=== PATIENT | female | born 1965 | race Caucasian/White ===

== ENCOUNTER 2020-04-23 09:20 | Emergency (ER) | payer SELFPAY ==
[2020-04-23 09:34] VITALS: BP 122/69; PULSE 77; RESP 18; TEMP 36.7; O2SAT 100
--- NOTE | 2020-04-23 09:39 | DI.RAD.S_ITS ---
PROCEDURE: XR FOREARM RT 2V INDICATIONS: fall/injury TECHNIQUE: 2 views of the forearm were acquired. COMPARISON: [facility], , XR ELBOW 3V LEFT, 05/10/2006, 16:14. FINDINGS: Bones: There is a mildly displaced distal ulnar fracture. No definite accompanying radial fracture can be seen on these images. Prominent elbow fixation hardware is seen. Age-appropriate bony degenerative changes are seen. Soft tissues: No suspicious soft tissue calcifications or masses. IMPRESSION: Mildly displaced distal ulna fracture. No definite accompanying radial fracture can be seen. Extensive elbow fixation hardware. Dictated by: Chicho Navarro M.D. on 04/23/2020 at 9:05 Approved by: Chicho Navarro M.D. on 04/23/2020 at 9:06
[2020-04-23] MEDS: HYDROCODONE/ACET 5/325 TABLET 1 TAB PO (10:28)
--- NOTE | 2020-04-23 10:28 | ED.UPPEXIN ---
HPI - Extremity Injury (Upper) General Chief Complaint: Extremity Injury, Upper Stated Complaint: lt arm poss broken, fell last tnight Time Seen by Provider: 04/23/20 09:24 Source: patient Mode of arrival: Ambulatory Limitations: no limitations History of Present Illness HPI narrative: 55-year-old female daily smoker with noncontributory medical history presents with her and a chief complaint of an accidental laceration to her left index finger just prior to arrival. She was using a sharp knife to open a bottle when it slipped and she lacerated the side of her finger. It bled fair amount caused her some pain but she denies any numbness, tingling or decreased range of motion or strength. She is otherwise well and free of complaint. Her last tetanus was at least 5 years ago. MD complaint: injury to: left Onset (ago): hour(s) Other Extremity Injury: Left: fingers Other injuries: none Handedness: right Place: home Severity: moderate Exacerbating factors: none Context: laceration Associated symptoms: denies other symptoms Treatments prior to arrival: bandage Related Data Home Medications Medication Instructions Recorded Confirmed . (No Home Medications) #0 02/24/06 Previous Rx's Medication Instructions Recorded hydrocodone-acetaminophen 1 tab PO Q4-6H PRN #20 tab 04/23/20 Allergies Allergy/AdvReac Type Severity Reaction Status Date / Time No Known Drug Allergies Allergy Verified 04/23/20 09:39 Review of Systems Constitutional Constitutional: Denies chills, Denies fatigue, Denies fever(s), Denies frequent falls, Denies lethargy and Denies weakness Eyes Eyes: Denies change in vision, Denies eye discharge, Denies irritation and Denies loss of vision ENT Ears, Nose, Mouth, and Throat: Denies change in voice, Denies dizziness, Denies neck pain, Denies sore throat and Denies throat swelling Cardiovascular Cardiovascular: Denies chest pain, Denies irregular heart rhythm, Denies lightheadedness, Denies palpitations, Denies dyspnea, Denies dyspnea on exertion and Denies orthopnea Respiratory Respiratory: Denies cough, Denies dyspnea, Denies dyspnea on exertion and Denies wheezing Gastrointestinal Gastrointestinal: Denies abdominal pain, Denies change in bowel habits, Denies diarrhea, Denies nausea and Denies vomiting Musculoskeletal Musculoskeletal: Denies neck pain and Denies numbness Integumentary/Breasts Skin/Breast: Denies pruritus, Denies erythema, Denies rash and Reports wounds Neurologic Neurologic: Denies behavioral changes, Denies confusion, Denies dizziness, Denies frequent falls, Denies loss of vision, Denies numbness and Denies weakness Psychiatric Psychiatric: Denies anxiety, Denies behavioral changes, Denies confusion, Denies depression, Denies homicidal ideation and Denies suicidal ideation Endocrine Endocrine: Denies fatigue, Denies flushing and Denies palpitations Hematologic/Lymphatic Hematologic/Lymphatic: Denies easy bruising Allergic/Immunologic Allergic/Immunologic: Denies urticaria, Denies throat swelling and Denies wheezing Patient History Social History Smoking Status: Current every day smoker Smoking Status: Current every day smoker alcohol intake frequency: other Substance Use Type: marijuana Exam Narrative Exam Narrative: GEN: AOx3 and in mild distress EYES: Pupils are equal, round, and reactive to light and accommodation. Extraoccular muscles are intact bilaterally. There is no subconjunctival hemorrhage or exudate. CHEST: Lungs are clear to auscultation bilaterally and free of wheezes, rales, or rhonchi. Heart rate is regular rhythm, there are no murmurs, clicks, rubs, or gallops. There is no chest wall tenderness. ABD: Abdomen is soft and nontender. There is no guarding or rebound. Bowel sounds are normal in all 4 quadrants. There is no mass or organomegaly. EXT: 1.5 cm laceration lateral edge of left index finger adjacent to the D IP. Minimal active bleeding, no evidence of tendon involvement when visualized in a bloodless field. Full painless ROM of all extremities with no loss of sensation or strength. SKIN: Warm, pink, and dry. No erythema or rash Initial Vital Signs Initial Vital Signs: Vital Signs Temperature 98.1 F 04/23/20 09:34 Pulse Rate 77 04/23/20 09:34 Respiratory Rate 18 04/23/20 09:34 Blood Pressure 122/69 04/23/20 09:34 Pulse Oximetry 100 04/23/20 09:34 Procedures Laceration Repair Laceration 1: Site: upper extremity Side (If applicable): left Size (cm): 1.5 Description: linear Depth: simple, single layer Local Anesthetic: lidocaine 1% and with bicarb Amount of anesthesia used (mL): 2 Pre-repair: wound explored and irrigated extensively Skin layer closed with: nylon Size (cm): 5-0 Number of sutures: 5 Technique: simple, interrupted Course Orders Ordered: ED Orders 04/23/20 09:39 XR forearm LT 2V Stat Discontinued Medications Hydrocodone Bitart/Acetaminophen ([place] 5/325) 1 tab PO NOW ONE Stop: 04/23/20 10:25 Last Admin: 04/23/20 10:28 Dose: 1 tab Documented by: BRIAN Hydrocodone Bitart/Acetaminophen ([place] 5/325) 1 tab PO NOW ONE Stop: 04/23/20 10:28 Last Admin: 04/23/20 10:28 Dose: Not Given Documented by: BRIAN Vital Signs Vital signs: Vital Signs - 8 hr 04/23/20 09:34 Temperature 98.1 F Pulse Rate 77 Respiratory Rate 18 Blood Pressure 122/69 Pulse Oximetry 100 MDM - Extremity Injury (Upper) Imaging Data Extremity x-ray #1: Radiologist's Impression: Chart Viewer Diagnostics DATE TYPE STATUS REF RANGE/AUTHOR Hx 04/23/20 09:39 Chicho Navarro JuanitoSabrina K 55, F0 1965 [facility], [facility] ED R05 56.8kg Extremity Injury, Upper Search Chart No Data to Display Total 30 MME/Day Pending Discharge NF - Not included in interaction checking ONSET Today 09:34 Juanito,Sabrina Smith 55 F [address] [address] XRay Report Signed Patient: Sabrina Solomon KMR#: [id number] : 1965Acct:[id number] Age/Sex: 55 / FDate of Service: 04/23/20 Loc: ED Accession Number: [id number] Procedure: XR forearm LT 2V Ordering Provider: Juan Francisco Partida D.O. PROCEDURE: XR FOREARM RT 2V INDICATIONS: fall/injury TECHNIQUE: 2 views of the forearm were acquired. COMPARISON: [facility], , XR ELBOW 3V LEFT, 05/10/2006, 16:14. FINDINGS: Bones: There is a mildly displaced distal ulnar fracture. No definite accompanying radial fracture can be seen on these images. Prominent elbow fixation hardware is seen. Age-appropriate bony degenerative changes are seen. Soft tissues: No suspicious soft tissue calcifications or masses. IMPRESSION: Mildly displaced distal ulna fracture. No definite accompanying radial fracture can be seen. Extensive elbow fixation hardware. Dictated by: Chicho Navarro M.D. on 04/23/2020 at 9:05 Approved by: Chicho Navarro M.D. on 04/23/2020 at 9:06 Discharge Plan Departure Patient Disposition: Home Clinical Impression: Forearm fracture Qualifiers: Encounter type: initial encounter Fracture type: closed Laterality: left Qualified Code(s): S52.92XA - Unspecified fracture of left forearm, initial encounter for closed fracture Instructions: DI for Fracture Activity Restrictions/Additional Instructions: *You have been diagnosed with [acute left ulna shaft fracture] *What to do: *Take medications as directed *Follow up with your primary care provider in 2-3 days, call for an appointment. Let them know you were seen in the Emergency Department and that we ask that you be seen in follow up *Return to ER if you should have any new, worsening or concerning symptoms such as worsening pain, numbness, tingling or other bothersome symptoms Splint Care: Keep splint clean and dry. Elevated affected body part to decrease swelling. OK to use ice pack on the affected body part. Use for 15-20 minutes each time, for 5-6x per day. If you develop worsening pain, numbness, tingling, discoloration of the affected body part, loosen the splint by loosening the DARA wrap, and either see your doctor for an urgent re-assessment, or return to the Emergency Department. Return to the Emergency Department for any new or worsening symptoms. Prescriptions: New hydrocodone-acetaminophen 5-325 mg tablet 1 tab PO Q4-6H PRN (Reason: pain) Qty: 20 RF: 0 No Action . (No Home Medications) Qty: 0 RF: 0 Referrals: Surjit Henao MD [Physician] -
[2020-04-23 11:19] VITALS: PULSE 78
[2020-04-23 11:22] VITALS: BP 127/66; PULSE 82; RESP 16; TEMP 36.9; O2SAT 100
--- NOTE | 2020-04-25 21:53 | ED_ITS ---
HPI - Extremity Injury (Upper) General Chief Complaint: Extremity Injury, Upper Stated Complaint: lt arm poss broken, fell last tnight Time Seen by Provider: 04/23/20 09:24 Source: patient Mode of arrival: Ambulatory Limitations: no limitations History of Present Illness HPI narrative: 55F smoker presents alone with chief complaint of left forearm pain after falling last night. She is visiting locally with family and was unable to see in the dark when she slipped and fell, landing on her left forearm. She felt immediate pain in the middle of her forearm. She denies any numbness, tingling or weakness. She denies any elbow or shoulder pain. She denies any head, neck or back pain. She is otherwise well and free of complaint. MD complaint: injury to: left and forearm Onset (ago): hour(s) Other injuries: none Handedness: right Place: home Severity: moderate Relieving factors: rest Exacerbating factors: movement of extremity Context: direct blow Associated symptoms: denies other symptoms Treatments prior to arrival: bandage Related Data Home Medications Medication Instructions Recorded Confirmed . (No Home Medications) #0 02/24/06 Previous Rx's Medication Instructions Recorded hydrocodone-acetaminophen 1 tab PO Q4-6H PRN #20 tab 04/23/20 Allergies Allergy/AdvReac Type Severity Reaction Status Date / Time No Known Drug Allergies Allergy Verified 04/23/20 09:39 Review of Systems Constitutional Constitutional: Denies chills, Denies fatigue, Denies fever(s), Denies frequent falls, Denies lethargy and Denies weakness Eyes Eyes: Denies change in vision, Denies eye discharge, Denies irritation and Denies loss of vision ENT Ears, Nose, Mouth, and Throat: Denies change in voice, Denies dizziness, Denies neck pain, Denies sore throat and Denies throat swelling Cardiovascular Cardiovascular: Denies chest pain, Denies irregular heart rhythm, Denies lightheadedness, Denies palpitations, Denies dyspnea, Denies dyspnea on exertion and Denies orthopnea Respiratory Respiratory: Denies cough, Denies dyspnea, Denies dyspnea on exertion and Denies wheezing Gastrointestinal Gastrointestinal: Denies abdominal pain, Denies change in bowel habits, Denies diarrhea, Denies nausea and Denies vomiting Musculoskeletal Musculoskeletal: Denies neck pain and Denies numbness Integumentary/Breasts Skin/Breast: Denies pruritus, Denies erythema, Denies rash and Denies wounds Neurologic Neurologic: Denies behavioral changes, Denies confusion, Denies dizziness, Denies frequent falls, Denies loss of vision, Denies numbness and Denies weakness Psychiatric Psychiatric: Denies anxiety, Denies behavioral changes, Denies confusion, Denies depression, Denies homicidal ideation and Denies suicidal ideation Endocrine Endocrine: Denies fatigue, Denies flushing and Denies palpitations Hematologic/Lymphatic Hematologic/Lymphatic: Denies easy bruising Allergic/Immunologic Allergic/Immunologic: Denies urticaria, Denies throat swelling and Denies wheezing Patient History Social History Smoking Status: Current every day smoker Smoking Status: Current every day smoker alcohol intake frequency: other Substance Use Type: marijuana Exam Narrative Exam Narrative: GENERAL: [55] year old patient appears stated age. Well- nourished, well-developed patient, in mild distress. HEAD: Atraumatic. Normocephalic. EYES: Pupils equal round and reactive. Extraocular motions intact. No scleral icterus. No injection or drainage. ENT: Nose without bleeding, purulent drainage. Throat without erythema, tonsillar hypertrophy or exudate. Airway patent. NECK: Trachea midline. Non tender CARDIOVASCULAR: Regular rate and rhythm without murmurs, gallops, or rubs. RESPIRATORY: Clear to auscultation. Breath sounds equal bilaterally. No wheezes, rales, or rhonchi. GASTROINTESTINAL: Abdomen soft, non-tender, nondistended. EXTREMITIES: Tenderness to palpation of left forearm, closed, isolated neurovascular intact. No obvious deformity or significant swelling. BACK: Nontender without deformity or crepitance. No flank tenderness. NEURO: AOx3. SKIN: No rash or erythema of visible areas Initial Vital Signs Initial Vital Signs: Vital Signs Temperature 98.1 F 04/23/20 09:34 Pulse Rate 77 04/23/20 09:34 Respiratory Rate 18 04/23/20 09:34 Blood Pressure 122/69 04/23/20 09:34 Pulse Oximetry 100 04/23/20 09:34 Procedures Orthopedic Splinting/Casting Injury #1: Side: right Upper Extremity Injury Location: forearm Upper Extremity Immobilizer: sling/shoulder immobilizer and sugar tong splint Post splinting neuro exam: intact Post splinting vascular exam: intact Placed by: Nursing Course Orders Ordered: Discontinued Medications Hydrocodone Bitart/Acetaminophen ([place] 5/325) 1 tab PO NOW ONE Stop: 04/23/20 10:25 Last Admin: 04/23/20 10:28 Dose: 1 tab Documented by: BRIAN Hydrocodone Bitart/Acetaminophen ([place] 5/325) 1 tab PO NOW ONE Stop: 04/23/20 10:28 Last Admin: 04/23/20 10:28 Dose: Not Given Documented by: BRIAN MDM - Extremity Injury (Upper) Imaging Data Extremity x-ray #1: Radiologist's Impression: Chart Viewer Diagnostics DATE TYPE STATUS REF RANGE/AUTHOR Hx 04/23/20 09:39 RamonChicho Shannon Sarah 55, F0 1965 [facility], [facility] ED 56.8kg Extremity Injury, Upper Search Chart No Data to Display Total 30 MME/Day Pending Discharge NF - Not included in interaction checking ONSET 04/23/20 11:22 Sabrina Solomon Sarah 55 F 1965 [place] [address] XRay Report Signed Patient: Sabrina Solomon KMR#: [id number] : 1965Acct:[id number] Age/Sex: 55 / FDate of Service: 04/23/20 Loc: ED Accession Number: [id number] Procedure: XR forearm LT 2V Ordering Provider: Juan Francisco Partida D.O. PROCEDURE: XR FOREARM RT 2V INDICATIONS: fall/injury TECHNIQUE: 2 views of the forearm were acquired. COMPARISON: [facility], , XR ELBOW 3V LEFT, 05/10/2006, 16:14. FINDINGS: Bones: There is a mildly displaced distal ulnar fracture. No definite accompanying radial fracture can be seen on these images. Prominent elbow fixation hardware is seen. Age-appropriate bony degenerative changes are seen. Soft tissues: No suspicious soft tissue calcifications or masses. IMPRESSION: Mildly displaced distal ulna fracture. No definite accompanying radial fracture can be seen. Extensive elbow fixation hardware. Dictated by: Chicho Navarro M.D. on 04/23/2020 at 9:05 Approved by: Chicho Navarro M.D. on 04/23/2020 at 9:06 Discharge Plan Departure Patient Disposition: Home Clinical Impression: Forearm fracture Qualifiers: Encounter type: initial encounter Fracture type: closed Laterality: left Qualified Code(s): S52.92XA - Unspecified fracture of left forearm, initial encounter for closed fracture Discharge Date/Time: 04/23/20 10:50 Instructions: DI for Fracture Activity Restrictions/Additional Instructions: *You have been diagnosed with [acute left ulna shaft fracture] *What to do: *Take medications as directed *Follow up with your primary care provider in 2-3 days, call for an appointment. Let them know you were seen in the Emergency Department and that we ask that you be seen in follow up *Return to ER if you should have any new, worsening or concerning symptoms such as worsening pain, numbness, tingling or other bothersome symptoms Splint Care: Keep splint clean and dry. Elevated affected body part to decrease swelling. OK to use ice pack on the affected body part. Use for 15-20 minutes each time, for 5-6x per day. If you develop worsening pain, numbness, tingling, discoloration of the affected body part, loosen the splint by loosening the DARA wrap, and either see your doctor for an urgent re-assessment, or return to the Emergency Department. Return to the Emergency Department for any new or worsening symptoms. Prescriptions: New hydrocodone-acetaminophen 5-325 mg tablet 1 tab PO Q4-6H PRN (Reason: pain) Qty: 20 RF: 0 No Action . (No Home Medications) Qty: 0 RF: 0 Referrals: Surjit Henao MD [Physician] -
== END 2020-04-23 10:50 | disposition home or self-care (01) ==
PROVIDERS: Emergency Provider Emergency Medicine
DX: S52.92XA Unspecified fracture of left forearm, initial encounter for closed fracture (principal); W19.XXXA Unspecified fall, initial encounter
CPT/HCPCS: 29125; 73090; 99283

== ENCOUNTER 2020-12-13 22:42 | Inpatient (IN) | payer MEDICAID, SELFPAY ==
[2020-12-13 22:43] VITALS: BP 197/86; PULSE 91; RESP 22; TEMP 37.1; O2SAT 95
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
[2020-12-13 23:10] LABS: Add Manual Diff / Slide Review NO; Basophils Absolute Auto 0 /uL (0-100); Basophils Percent Auto 0.4 % (0-2); Eosinophils Absolute Auto 100 /uL (0-450); Eosinophils Percent Auto 1.3 % (2-4); Hematocrit 42.4 % (36-46); Hemoglobin 14.2 g/dL (12.0-16.0); Lymphocytes Absolute Auto 1900 /uL (1100-4500); Lymphocytes Percent Auto 28.3 % (25-40); Mean Corpuscular HGB Conc 33.5 % (30-36); Mean Corpuscular Volume 95.6 fL (80-100); Monocytes Absolute Auto 800 /uL (0-900); Monocytes Percent Auto 11.6 % (3-14); Neutrophils Absolute Auto 3900 /uL (1500-7000); Neutrophils Percent Auto 58.4 % (50-75); Platelet Count 271 X10^3/uL (150-400); Red Blood Cell Count 4.44 X10^6/uL (4.0-5.2); Red Cell Distribution Width 14.9 % (11.6-14.8); White Blood Cell Count 6.7 X10^3/uL (4.5-11.0)
[2020-12-13 23:14] LABS: Alanine Aminotransferase 42 IU/L (<35); Albumin 4.8 g/dL (3.5-5.0); Albumin Globulin Ratio 1.1 (1.0-2.8); Alkaline Phosphatase 112 U/L (38-126); Aspartate Aminotransferase 54 IU/L (14-36); Bilirubin Total 0.4 mg/dL (0.2-1.3); Blood Urea Nitrogen 20 mg/dL (7-17); Calcium 10.1 mg/dL (8.4-10.2); Carbon Dioxide 33 mmol/L (22-32); Chloride 95 mmol/L (98-107); Estimated Glomerular Filt Rate > 60.0 mL/min (>60); Ethanol (ETOH) 12 mg/dL; Globulin 4.5 g/dL (1.7-4.1); Glucose 240 mg/dL (70-100); HEMOLYSIS 29 (0-50); Lipase 395 U/L (23-300); Magnesium 1.6 mg/dL (1.6-2.3); Potassium 3.9 mmol/L (3.4-5.1); Sodium 139 mmol/L (137-145); Total Protein 9.3 g/dL (6.3-8.2)
[2020-12-13] MEDS: LORazepam 2 MG/ML INJ 6 MG IV (23:22)
[2020-12-13 23:29] VITALS: PULSE 101; RESP 39
[2020-12-13 23:30] VITALS: PULSE 103; RESP 26
[2020-12-13 23:31] VITALS: BP 159/76; PULSE 103; RESP 24
[2020-12-13] MEDS: THIAMINE 200 MG/2 ML VIAL 100 MG IV (23:41)
[2020-12-13] MEDS: SODIUM CHLORIDE 0.9% 1,000 ML 1000 ML IV (23:41)
[2020-12-13] MEDS: MAGNESIUM SULFATE 2 GM/50 ML PIGGYBACK IV (23:43)
[2020-12-14] VITALS (16 sets, daily range): BP systolic 105–164; BP diastolic 58–114; PULSE 64–97; RESP 16–31; TEMP 36.6–36.8; O2SAT 94–99; BMI 22.6
[2020-12-14] MEDS: ONDANSETRON 4 MG/2 ML INJ IV ×2 (00:10→16:04)
[2020-12-14 01:45] LABS: Phosphorous 2.9 mg/dL (2.5-4.5)
[2020-12-14 02:08] LABS: COVID19 - ADMIT (NP swab/PCR) Negative (Negative)
[2020-12-14] MEDS: SODIUM CHLORIDE 0.9% 1,000 ML 125 ML IV ×3 (02:10→18:08)
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
--- NOTE | 2020-12-14 03:57 | PC.ADMIT ---
[address] [facility] Admission Note: The patient,Sabrina Solomon,55 y/o, was given written information regarding hospital policies, unit procedures and contact persons. Patient's smoking status: Current every day smoker. Pt admit to acute care from ED in stable condition. Able to ambulate albeit unsteady on feet from gurney to bed. High fall risk. Pt very drowsy from administration of 6 mg ativan in ED, kept falling asleep during admit. Reports last drink prior to admit, endorses drinking up to 2 pints vodka/day (approx 950 mL). Every day smoker, reports 2 cigarettes/day but is not sure of that. In no apparent cardiovascular or respiratory distress. Denies SOB, chest pain, dizziness, nausea. AO x4, +CSM, fatigued. CIWA 6 on admit, 5 at 0300. Denies A/V/T hallucinations, mild tremors present. Reports incontinence at baseline. Fluids running NS 125/hr. Patient unable to accurately recall medical history or current medications. Indicated to this RN that she does indeed take medications, but does not know the names or dosages, and it is unclear if she takes them regularly. Pt is aware of status with police department. Vital Signs - 8 hr 12/13/20 22:43 12/13/20 23:29 12/13/20 23:30 Temperature 98.7 F Pulse Rate 91 H 101 H 103 H Respiratory Rate 22 39 H 26 H Blood Pressure 197/86 H Pulse Oximetry 95 12/13/20 23:31 12/14/20 00:00 12/14/20 00:30 Temperature Pulse Rate 103 H 97 H 86 Respiratory Rate 24 31 H 27 H Blood Pressure 159/76 H Pulse Oximetry 12/14/20 01:00 12/14/20 01:30 12/14/20 01:47 Temperature Pulse Rate 82 80 79 Respiratory Rate 29 H 25 H 22 Blood Pressure 109/58 L Pulse Oximetry 12/14/20 01:56 12/14/20 02:15 Temperature 98.2 F Pulse Rate 81 79 Respiratory Rate 18 18 Blood Pressure 159/114 H 123/73 Pulse Oximetry 94 95
[2020-12-14] MEDS: PANTOPRAZOLE DR 20 MG TABLET PO (06:27)
[2020-12-14 07:28] LABS: Prothrombin Time 10.8 SECONDS (10.1-12.7)
[2020-12-14 07:35] LABS: Alanine Aminotransferase 27 IU/L (<35); Albumin 3.4 g/dL (3.5-5.0); Alkaline Phosphatase 84 U/L (38-126); Aspartate Aminotransferase 36 IU/L (14-36); BUN Creatinine Ratio 35.8 (6-22); Bilirubin Total 0.2 mg/dL (0.2-1.3); Blood Urea Nitrogen 19 mg/dL (7-17); Calcium 8.7 mg/dL (8.4-10.2); Carbon Dioxide 28 mmol/L (22-32); Chloride 104 mmol/L (98-107); Estimated Glomerular Filt Rate > 60.0 mL/min (>60); Globulin 3.3 g/dL (1.7-4.1); Glucose 118 mg/dL (70-100); HEMOLYSIS < 15 (0-50); Potassium 3.8 mmol/L (3.4-5.1); Sodium 137 mmol/L (137-145); Total Protein 6.7 g/dL (6.3-8.2)
[2020-12-14] MEDS: THIAMINE 100 MG TABLET PO (09:57)
[2020-12-14] MEDS: ENOXAPARIN 40 MG/0.4 ML SYRINGE SUBCUT (09:57)
[2020-12-14] MEDS: MULTIVITAMIN 1 TABLET 1 TAB PO (09:58)
[2020-12-14] MEDS: FOLIC ACID 1 MG TABLET PO (09:58)
[2020-12-14] MEDS: LORazepam 2 MG/ML INJ IV ×4 (10:12→20:46)
[2020-12-14] MEDS: chlordiazePOXIDE 25 MG CAPSULE 50 MG PO ×2 (11:01→17:34)
--- NOTE | 2020-12-14 14:50 | PC.NURSE ---
Addendum entered by Trudy Nowak R.N. 12/14/20 15:36: At 1500 pt awoke from nap with CIWA score of 6, and shakes given 1 mg ativan. assisted to BR, obtained small urine and sent to lab. cleaned of incontinent urine. Original Note: Pt lethargic this a.m. resting until approximately 10 a.m. small emesis x1. Pt c/o mild MALIK, and hands moderately shaking, she had mild anxiety with a CIWA score of 11. PRN Ativan 2mg given x1 with good effect and librium initiated. NS @ 125ml/hr. LS CTA. Pt ate 75% of breakfast and about 50% of lunch. Initially BP elevated in 160's but improved after PRN ativan. Throughout the rest of the shift CIWA score of 2-5. She made several calls on her cell phone to her spouse and public events facilities rental manager. Reported she was supposed to have a zoom court date today. SW made call to her defender. Assisted patient to bathroom and changing of soiled clothes. She was incontinent of urine this shift. She reported feeling dizzy while ambulating. Bed alarm and seizure precautions in place.Awaiting collection of UA for tox screen. No phone calls to patient room or visitors this shift.Endorsed to oncoming shift.
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
--- NOTE | 2020-12-14 15:32 | PC.NURSE ---
Pt's POC urine ordered per E.R. cancelled. Urine for toxicology screen collected and sent by cristian RUVALCABA.
[2020-12-14] MEDS: ACETAMINOPHEN 325 MG TABLET 650 MG PO (16:04)
--- NOTE | 2020-12-14 16:55 | PC.NURSE ---
Addendum entered by Julisa Elizabeth R.N. 12/14/20 21:41: Reports increasing anxiety. States headache and nausea have improved. Tremulous. Ativan administered as per emar. Now currently resting quietly in bed with eyes closed without signs of discomfort or distress. Turns self independently in bed. Incontinent of urine. Brief in place. Addendum entered by Julisa Elizabeth R.N. 12/14/20 17:42: Awakens from sleep and reports headache has improved. Able to take oral nourishment without difficulty. Toileted by ENROLLED AGENT who reports pt fairly stable on feet. Librium administered with explanation for use. Discussion with pt can follow up with ativan as needed. Will continue to monitor. Addendum entered by Julisa Elizabeth R.N. 12/14/20 17:06: CIWA of 12. Pt not medicated with prn ativan as now asleep in bed. Pt on scheduled librium. Original Note: Pt awake and alert in bed. Seizure pads in place. Pt reports headache 05/13. Room was darkened, ice pack provided and tylenol administered to treat. Pt is tremulous and currently denies nausea. Given snack to eat as per request. Zofran administered for pt statement intermittently nauseated. BL calf scd's in place. Pt appropriately oriented and conversant.
--- NOTE | 2020-12-14 18:44 | PM.PN.1 ---
Subjective Subjective Date Patient Seen: 12/14/20 Time Patient Seen: 08:44 Interval history: Today she feels somewhat improved. She is still anxious, tremulous, diaphoretic. Initially she was very sedated after large amount of ativan in ED. She woke up and started feeling withdrawal symptoms. She was given ativan per [facility] protocol and given librium. Exam Vital Signs (past 8 hours): - 12/14/20 11:15 12/14/20 14:00 12/14/20 15:35 Temperature 97.8 F Pulse Rate 76 68 66 Respiratory Rate 18 16 18 Blood Pressure 164/95 H 147/88 H 142/71 H Pulse Oximetry 97 12/14/20 16:20 12/14/20 18:33 Temperature 98.1 F Pulse Rate 67 68 Respiratory Rate 19 24 Blood Pressure 143/86 H 130/79 Pulse Oximetry 98 Oxygen Delivery Method Room Air Oxygen Flow Rate 0 Narrative Exam Narrative: General: no acute distress HEENT: PERRL, mucous membranes are moist. Neck: trachea midline. No JVD Lungs: clear bilaterally with no wheezes, rhonchi, or rales. Cardio: egular rate and rhythm without murmur Abdomen: Soft nontender, negative for organomegaly, or masses. normal bowel sounds Musculoskeletal: moving all extremities Skin: Warm dry and intact without rashes Neuro: slow to word finding, answering questions appropriately Psych: flat mood, slightly lethargic Objective Labs Result Diagrams: 12/13/20 22:55 12/14/20 06:44 Labs: Laboratory Results - last 24 hr 12/13/20 12/13/20 12/13/20 22:55 22:55 22:55 WBC 6.7 RBC 4.44 Hgb 14.2 Hct 42.4 MCV 95.6 MCH 32.0 MCHC 33.5 RDW 14.9 H Plt Count 271 Neut % (Auto) 58.4 Lymph % (Auto) 28.3 [place] % (Auto) 11.6 Eos % (Auto) 1.3 L Baso % (Auto) 0.4 Neut # (Auto) 3900 Lymph # (Auto) 1900 [place] # (Auto) 800 Eos # (Auto) 100 Baso # (Auto) 0 PT INR Sodium 139 Potassium 3.9 Chloride 95 L Carbon Dioxide 33 H BUN 20 H Creatinine 0.54 Estimated GFR > 60.0 BUN/Creatinine Ratio 37.0 H Glucose 240 H Calcium 10.1 Phosphorus 2.9 Magnesium 1.6 Total Bilirubin 0.4 AST 54 H ALT 42 H Alkaline Phosphatase 112 Total Protein 9.3 H Albumin 4.8 Globulin 4.5 H Albumin/Globulin Ratio 1.1 Lipase 395 H Ethyl Alcohol 12 H SARS-CoV-2 (PCR) 12/13/20 12/14/20 12/14/20 23:20 06:44 06:44 WBC RBC Hgb Hct MCV MCH MCHC RDW Plt Count Neut % (Auto) Lymph % (Auto) [place] % (Auto) Eos % (Auto) Baso % (Auto) Neut # (Auto) Lymph # (Auto) [place] # (Auto) Eos # (Auto) Baso # (Auto) PT 10.8 INR 1.0 Sodium 137 Potassium 3.8 Chloride 104 Carbon Dioxide 28 BUN 19 H Creatinine 0.53 Estimated GFR > 60.0 BUN/Creatinine Ratio 35.8 H Glucose 118 H D Calcium 8.7 Phosphorus Magnesium Total Bilirubin 0.2 AST 36 ALT 27 Alkaline Phosphatase 84 Total Protein 6.7 Albumin 3.4 L Globulin 3.3 Albumin/Globulin Ratio 1.0 Lipase Ethyl Alcohol SARS-CoV-2 (PCR) Negative [facility] Medical History (Updated 12/14/20 @ 05:31 by JASON Gomez) Alcohol use disorder Bipolar 1 disorder Depression with anxiety Hepatitis C Surgical History (Updated 12/14/20 @ 05:31 by JASON Gomez) History of elbow surgery Family History Father Stroke Mother Diabetes mellitus Social History household members: significant other Smoking Status: Current every day smoker alcohol intake: current Assessment & Plan Assessment & Plan narrative: Ms. Solomon is a 55W with significant alcohol abuse who presents with acute alcohol withdrawal. 1. Alcohol withdrawal, acute in the presence of chronic alcohol abuse, acute on chronic -she is admitted for alcohol withdrawal and is high risk given fast taper of alcohol and more than 2 pints of vodka daily drinking on average -patient has no history of seizures or delirium tremens, or being intubated -patient on CIWA protocol with ativan -started fixed dose librium taper at 50mg Q6hr -patient to be monitored on tele medicine, vital signs q.4 hours, intake and output monitored Q shift, weight measure daily, diet: Regular , patient on CIWA protocol -IV fluid normal saline 100 cc/hour -patient given thiamin and folic acid, mvi 2. Tobacco abuse, acute on chronic, present on admission -counseling provided regarding smoking cessation -decline nicotine patch Code status: Full code Surrogate decision maker: Imtiaz Dalton (daughter) COVID PCR: Negative VTE/DVT prophylaxis: Lovenox 40 mg and SCDs Quality VTE Deep Vein Thrombosis/Pulmonary Embolism Present on Admission: No
[2020-12-14 20:49] LABS: Ur Creatinine Normal (Normal); Ur Specific Gravity Normal (Normal); Urine pH Normal (Normal)
[2020-12-14 20:50] LABS: UR Morphine/Opiate cutoff 300 Negative (Negative); Urine Amphetamines Negative (Negative); Urine Barbiturates Negative (Negative); Urine Benzodiazepines Negative (Negative); Urine Cocaine Negative (Negative); Urine MDMA Negative (Negative); Urine Methadone Negative (Negative); Urine Methamphetamines Negative (Negative); Urine Oxycodone Negative (Negative); Urine Phencyclidine Negative (Negative); Urine Tetrahydrocannabinol Negative (Negative); Urine Tricyclic Antidepressant Negative (Negative)
[2020-12-15] VITALS (10 sets, daily range): BP systolic 118–160; BP diastolic 65–98; PULSE 59–81; RESP 16–22; TEMP 36.6–36.9; O2SAT 94–98
[2020-12-15] MEDS: chlordiazePOXIDE 25 MG CAPSULE 50 MG PO ×4 (00:09→20:56)
[2020-12-15] MEDS: LORazepam 2 MG/ML INJ IV ×3 (00:16→19:18)
[2020-12-15] MEDS: SODIUM CHLORIDE 0.9% 1,000 ML 125 ML IV (02:53)
[2020-12-15] MEDS: PANTOPRAZOLE DR 20 MG TABLET PO (06:15)
[2020-12-15 06:23] LABS: Hematocrit 36.3 % (36-46); Hemoglobin 11.9 g/dL (12.0-16.0); Mean Corpuscular HGB Conc 32.9 % (30-36); Mean Corpuscular Hemoglobin 31.7 PG (26-34); Mean Corpuscular Volume 96.5 fL (80-100); Platelet Count 229 X10^3/uL (150-400); Red Blood Cell Count 3.76 X10^6/uL (4.0-5.2); Red Cell Distribution Width 14.9 % (11.6-14.8); White Blood Cell Count 4.6 X10^3/uL (4.5-11.0)
[2020-12-15 06:29] LABS: Prothrombin Time 10.6 SECONDS (10.1-12.7)
[2020-12-15 06:36] LABS: Alanine Aminotransferase 23 IU/L (<35); Albumin 3.3 g/dL (3.5-5.0); Alkaline Phosphatase 74 U/L (38-126); Aspartate Aminotransferase 30 IU/L (14-36); Bilirubin Total 0.2 mg/dL (0.2-1.3); Blood Urea Nitrogen 12 mg/dL (7-17); Calcium 8.6 mg/dL (8.4-10.2); Carbon Dioxide 28 mmol/L (22-32); Chloride 104 mmol/L (98-107); Estimated Glomerular Filt Rate > 60.0 mL/min (>60); Globulin 3.4 g/dL (1.7-4.1); Glucose 108 mg/dL (70-100); HEMOLYSIS < 15 (0-50); Potassium 3.8 mmol/L (3.4-5.1); Sodium 136 mmol/L (137-145); Total Protein 6.7 g/dL (6.3-8.2)
[2020-12-15 06:38] LABS: Magnesium 1.5 mg/dL (1.6-2.3)
[2020-12-15] MEDS: MAGNESIUM SULFATE 2 GM/50 ML PIGGYBACK IV (07:42)
[2020-12-15] MEDS: THIAMINE 100 MG TABLET PO (09:12)
[2020-12-15] MEDS: MULTIVITAMIN 1 TABLET 1 TAB PO (09:12)
[2020-12-15] MEDS: FOLIC ACID 1 MG TABLET PO (09:13)
[2020-12-15] MEDS: ENOXAPARIN 40 MG/0.4 ML SYRINGE SUBCUT (09:13)
[2020-12-15 13:22] LABS: Magnesium 2.1 mg/dL (1.6-2.3)
--- NOTE | 2020-12-15 14:08 | P.PN_ITS ---
Subjective Subjective Date Patient Seen: 12/15/20 Time Patient Seen: 08:08 Interval history: Today she feels moderately improved. She is still anxious, tremulous, diaphoretic, but this is much better than her symptoms two days ago. Otherwise she has no complaints. Exam Vital Signs (past 8 hours): - 12/15/20 09:40 12/15/20 13:07 Temperature 98.0 F Pulse Rate 68 70 Respiratory Rate 16 22 Blood Pressure 118/65 160/98 H Pulse Oximetry 94 98 Oxygen Delivery Method Room Air Oxygen Flow Rate 0 Narrative Exam Narrative: General: no acute distress HEENT: PERRL, mucous membranes are moist. Neck: trachea midline. No JVD Lungs: clear bilaterally with no wheezes, rhonchi, or rales. Cardio: egular rate and rhythm without murmur Abdomen: Soft nontender, negative for organomegaly, or masses. normal bowel sounds Musculoskeletal: moving all extremities Skin: Warm dry and intact without rashes Neuro: slow to word finding, answering questions appropriately Psych: flat mood, slightly lethargic Objective Labs Result Diagrams: 12/15/20 06:00 12/15/20 06:00 Labs: Laboratory Results - last 24 hr 12/14/20 12/15/20 12/15/20 15:20 06:00 06:00 WBC RBC Hgb Hct MCV MCH MCHC RDW Plt Count PT 10.6 INR 1.0 Sodium 136 L Potassium 3.8 Chloride 104 Carbon Dioxide 28 BUN 12 Creatinine 0.48 L Estimated GFR > 60.0 BUN/Creatinine Ratio 25.0 H Glucose 108 H Calcium 8.6 Magnesium Total Bilirubin 0.2 AST 30 ALT 23 Alkaline Phosphatase 74 Total Protein 6.7 Albumin 3.3 L Globulin 3.4 Albumin/Globulin Ratio 1.0 U Opiates 300ng/mL cut Negative Ur Oxycodone Screen Negative Urine Methadone Screen Negative Ur Barbiturates Screen Negative U Tricyclic Antidepress Negative Ur Phencyclidine Scrn Negative Ur Amphetamines Screen Negative U Methamphetamines Scrn Negative Ur MDMA Scrn (Ecstasy) Negative U Benzodiazepines Scrn Negative Urine Cocaine Screen Negative U Marijuana (THC) Screen Negative 12/15/20 12/15/20 12/15/20 06:00 06:00 13:05 WBC 4.6 RBC 3.76 L Hgb 11.9 L Hct 36.3 MCV 96.5 MCH 31.7 MCHC 32.9 RDW 14.9 H Plt Count 229 PT INR Sodium Cancelled Potassium Cancelled Chloride Cancelled Carbon Dioxide Cancelled BUN Cancelled Creatinine Cancelled Estimated GFR Cancelled BUN/Creatinine Ratio Cancelled Glucose Cancelled Calcium Cancelled Magnesium 1.5 L 2.1 Total Bilirubin AST ALT Alkaline Phosphatase Total Protein Albumin Globulin Albumin/Globulin Ratio U Opiates 300ng/mL cut Ur Oxycodone Screen Urine Methadone Screen Ur Barbiturates Screen U Tricyclic Antidepress Ur Phencyclidine Scrn Ur Amphetamines Screen U Methamphetamines Scrn Ur MDMA Scrn (Ecstasy) U Benzodiazepines Scrn Urine Cocaine Screen U Marijuana (THC) Screen [facility] Medical History (Updated 12/14/20 @ 05:31 by JASON Gomez) Alcohol use disorder Bipolar 1 disorder Depression with anxiety Hepatitis C Surgical History (Updated 12/14/20 @ 05:31 by JASON Gomez) History of elbow surgery Family History Father Stroke Mother Diabetes mellitus Social History household members: significant other Smoking Status: Current every day smoker alcohol intake: current Assessment & Plan Assessment & Plan narrative: Ms. Solomon is a 55W with significant alcohol abuse who presents with acute alcohol withdrawal. 1. Alcohol withdrawal, acute in the presence of chronic alcohol abuse, acute on chronic -she is admitted for alcohol withdrawal and is high risk given fast taper of alcohol and more than 2 pints of vodka daily drinking on average -patient has no history of seizures or delirium tremens, or being intubated -patient on CIWA protocol with ativan -started fixed dose librium taper at 50mg Q6hr, taper to 50 q8hr 12/15, 50q12 12/16, then 50mg once on 12/17 -patient to be monitored on tele medicine, vital signs q.4 hours, intake and output monitored Q shift, weight measure daily, diet: Regular , patient on CIWA protocol -IV fluid normal saline 100 cc/hour -patient given thiamin and folic acid, mvi 2. Tobacco abuse, acute on chronic, present on admission -counseling provided regarding smoking cessation -decline nicotine patch 3. Anemia, mild -hemoglobin from 14.2->11.9 -given IV fluid, so likely hemodilution -will stop IV fluids -recheck hgb in AM -at this time no evidence of bleeding Code status: Full code Surrogate decision maker: Imtiaz Dalton (daughter) COVID PCR: Negative VTE/DVT prophylaxis: Lovenox 40 mg and SCDs Quality VTE Deep Vein Thrombosis/Pulmonary Embolism Present on Admission: No
--- NOTE | 2020-12-15 14:22 | PC.NURSE ---
Pt received lying in bed, seizure precautions. She tolerates breakfast well. Received 2 gm MG+ replaced IV this a.m. upon recheck MG 2.1. Pt O x3 slightly forgetful, reports mild MALIK, mild diaphoresis, c/o nausea (although not vomitting with out sticking her finger in her throat) when RN advised not to stick her finger in her throat she stated the vomit gets stuck in her throat noted minimal emesis. CIWA ranging from 5-11 this a.m. medicated with PRN ativan and scheduled librium. She sleeps much throughout the day, incontinent of urine. Encouraged to shower with acceptance x1 min assist. Slightly unsteady. Continuous monitoring.
--- NOTE | 2020-12-15 16:56 | DIET.PN ---
Dietary Progress Note RD attempt to visit pt, CIWA 5-11 per nursing and sleeping. Will attempt again if hospitalized after weekend.
[2020-12-15] MEDS: SODIUM CHLORIDE 0.9% FLUSH 10 ML IV ×2 (19:18→20:57)
--- NOTE | 2020-12-15 20:30 | PC.NURSE ---
Patient has been inducing vomiting during shift with three episodes since 1829. Spoke with SKIP Pineda and Dr. Glez and we will continue with the Ativan and Librium.
[2020-12-15] MEDS: ONDANSETRON 4 MG/2 ML INJ IV (20:56)
[2020-12-15] MEDS: ACETAMINOPHEN 325 MG TABLET 650 MG PO (20:57)
[2020-12-16] MEDS: chlordiazePOXIDE 25 MG CAPSULE 50 MG PO ×2 (02:25→10:16)
[2020-12-16] MEDS: PANTOPRAZOLE DR 20 MG TABLET PO (05:14)
[2020-12-16 05:16] VITALS: BP 118/74; PULSE 67; RESP 18; TEMP 36.3; O2SAT 94
[2020-12-16 06:08] LABS: Hematocrit 37.1 % (36-46); Hemoglobin 12.4 g/dL (12.0-16.0); Mean Corpuscular HGB Conc 33.5 % (30-36); Mean Corpuscular Hemoglobin 32.4 PG (26-34); Mean Corpuscular Volume 96.5 fL (80-100); Platelet Count 240 X10^3/uL (150-400); Red Blood Cell Count 3.84 X10^6/uL (4.0-5.2); Red Cell Distribution Width 14.8 % (11.6-14.8); White Blood Cell Count 4.7 X10^3/uL (4.5-11.0)
[2020-12-16 06:09] LABS: Prothrombin Time 10.6 SECONDS (10.1-12.7)
[2020-12-16 06:14] LABS: Alanine Aminotransferase 22 IU/L (<35); Albumin 3.5 g/dL (3.5-5.0); Alkaline Phosphatase 71 U/L (38-126); Aspartate Aminotransferase 29 IU/L (14-36); BUN Creatinine Ratio 32.7 (6-22); Bilirubin Total 0.3 mg/dL (0.2-1.3); Blood Urea Nitrogen 17 mg/dL (7-17); Calcium 8.9 mg/dL (8.4-10.2); Carbon Dioxide 28 mmol/L (22-32); Chloride 100 mmol/L (98-107); Estimated Glomerular Filt Rate > 60.0 mL/min (>60); Globulin 3.4 g/dL (1.7-4.1); Glucose 125 mg/dL (70-100); HEMOLYSIS < 15 (0-50); Potassium 3.8 mmol/L (3.4-5.1); Sodium 133 mmol/L (137-145); Total Protein 6.9 g/dL (6.3-8.2)
--- NOTE | 2020-12-16 06:25 | PC.NURSE ---
Noted strong smelling urine when attends was changed earlier, tj & skin care done. SKIP Edwin notified ordered urine microscopic via cath. But pt. sound asleep @ this time. She was up until 0330 this morning, reported to coordinator Sara Liang RN she advised me to let her sleep for now. She stated will collect urine sample when she wakes up. Will report to day RN.
[2020-12-16 06:36] LABS: Magnesium 1.6 mg/dL (1.6-2.3)
[2020-12-16] MEDS: MAGNESIUM SULFATE 2 GM/50 ML PIGGYBACK IV (08:05)
[2020-12-16 08:16] VITALS: BP 108/69; PULSE 58; RESP 12; TEMP 36.2; O2SAT 95
[2020-12-16] MEDS: MULTIVITAMIN 1 TABLET 1 TAB PO (10:16)
[2020-12-16] MEDS: FOLIC ACID 1 MG TABLET PO (10:16)
[2020-12-16] MEDS: THIAMINE 100 MG TABLET PO (10:16)
[2020-12-16] MEDS: MAGNESIUM OXIDE 400 MG TABLET PO (10:16)
[2020-12-16] MEDS: ENOXAPARIN 40 MG/0.4 ML SYRINGE SUBCUT (10:17)
[2020-12-16] MEDS: SODIUM CHLORIDE 0.9% FLUSH 10 ML IV (10:17)
--- NOTE | 2020-12-16 10:31 | PM.PN.1 ---
Subjective Subjective Date Patient Seen: 12/16/20 Time Patient Seen: 10:32 Interval history: Yesterday her withdrawal symptoms broke through the 50 mg Librium q.8 hours so it was increased to every 6 hours. This morning she appears over-sedated and so we will back off on the dose to 25 mg q.8. This is variability in in response and need for higher and then lower benzodiazepine doses is not unexpected at this stage of withdrawal. The magnesium level is 1.6 today and so an additional 2 g of magnesium will be given along with oral magnesium and repeat level tomorrow. Her CBC and CMP is normal except for a glucose of 125, up from 118. Her heart rate has been in the 40s and 50s on telemetry but appears to be in sinus rhythm. Overnight she had an episode of vomiting which appeared to be somewhat volitional. This morning when I see her she is sleeping through the exam and is not engaged. She received her last dose of lorazepam 7:00 p.m. yesterday and her last dose of Librium at 2:25 a.m.. Exam Vital Signs (past 8 hours): - 12/16/20 05:16 12/16/20 08:16 Temperature 97.3 F L 97.1 F L Pulse Rate 67 58 L Respiratory Rate 18 12 Blood Pressure 118/74 108/69 Pulse Oximetry 94 95 Oxygen Delivery Method Room Air Oxygen Flow Rate 0 Narrative Exam Narrative: She is sleeping and not engaged during my exam visit today. Heart is regular rate and rhythm without murmur Lungs are clear to auscultation bilaterally Extremities have no ankle edema. Objective Labs Result Diagrams: 12/16/20 05:15 12/16/20 05:15 Labs: Laboratory Results - last 24 hr 12/15/20 12/16/20 12/16/20 13:05 05:15 05:15 WBC RBC Hgb Hct MCV MCH MCHC RDW Plt Count PT 10.6 INR 1.0 Sodium 133 L Potassium 3.8 Chloride 100 Carbon Dioxide 28 BUN 17 Creatinine 0.52 Estimated GFR > 60.0 BUN/Creatinine Ratio 32.7 H Glucose 125 H Calcium 8.9 Magnesium 2.1 Total Bilirubin 0.3 AST 29 ALT 22 Alkaline Phosphatase 71 Total Protein 6.9 Albumin 3.5 Globulin 3.4 Albumin/Globulin Ratio 1.0 12/16/20 12/16/20 05:15 05:15 WBC 4.7 RBC 3.84 L Hgb 12.4 Hct 37.1 MCV 96.5 MCH 32.4 MCHC 33.5 RDW 14.8 Plt Count 240 PT INR Sodium Potassium Chloride Carbon Dioxide BUN Creatinine Estimated GFR BUN/Creatinine Ratio Glucose Calcium Magnesium 1.6 Total Bilirubin AST ALT Alkaline Phosphatase Total Protein Albumin Globulin Albumin/Globulin Ratio [facility] Medical History (Updated 12/14/20 @ 05:31 by JASON Gomez) Alcohol use disorder Bipolar 1 disorder Depression with anxiety Hepatitis C Surgical History (Updated 12/14/20 @ 05:31 by JASON Gomez) History of elbow surgery Family History Father Stroke Mother Diabetes mellitus Social History household members: significant other Smoking Status: Current every day smoker alcohol intake: current Assessment & Plan Assessment & Plan narrative: Ms. Solomon is a 55 female with significant alcohol abuse who presented with acute alcohol withdrawal. 1. Alcohol withdrawal, acute in the presence of chronic alcohol abuse, acute on chronic -she was admitted for alcohol withdrawal and is high risk given fast taper of alcohol and more than 2 pints of vodka daily drinking on average -patient has no history of seizures or delirium tremens, or being intubated -patient on CIWA protocol with ativan -continue taper of fixed dose Librium, down to 25 mg q.8 hours today if successful. -monitor on telemetry, vital signs q.4 hours, intake and output monitored Q shift, weight measure daily, diet: Regular , patient on CIWA protocol -IV fluid normal saline 100 cc/hour initially used -patient given thiamin and folic acid, mvi, magnesium 2. Tobacco abuse, acute on chronic, present on admission -counseling provided regarding smoking cessation -decline nicotine patch 3. Anemia, mild -hemoglobin from 14.2->11.9 -given IV fluid, so likely hemodilution -IVF stopped -recheck hgb at 12.4 on 12/16 -at this time no evidence of bleeding 4. Hypomagnesemia -magnesium level 1.6 on 12/16. -begin oral magnesium, give additional 2 g IV and recheck on 12/17 Code status: Full code Surrogate decision maker: Imtiaz Dalton (daughter) COVID PCR: Negative VTE/DVT prophylaxis: Lovenox 40 mg and SCDs Quality VTE Deep Vein Thrombosis/Pulmonary Embolism Present on Admission: No
[2020-12-16] MEDS: LORazepam 2 MG/ML INJ IV (10:57)
[2020-12-16 10:58] LABS: Bacteria Urine Many (>30); RBC Urine 1-5/HPF (0-5/HPF); Squamous Epithelial Cell Urine 1-5 /HPF (0-5/HPF); WBC Urine 5-10/HPF (0-5/HPF)
[2020-12-16 11:00] LABS: Culture Indicated Urine Specimen Cultured
[2020-12-16 11:17] VITALS: BP 130/79; PULSE 64; RESP 14
[2020-12-16 12:10] VITALS: BP 127/84; PULSE 77; RESP 18; TEMP 37.1; O2SAT 98
[2020-12-16] MEDS: chlordiazePOXIDE 25 MG CAPSULE PO (14:17)
[2020-12-16 15:58] VITALS: BP 128/93; PULSE 92; RESP 18; TEMP 36.1; O2SAT 95
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
--- NOTE | 2020-12-16 17:10 | PC.NURSE ---
Addendum entered by Jessica Meneses R.N. 12/16/20 17:46: Late entry: At time of discharge did discuss risk and benefits of staying versus leaving AMA, risk for injury and illness versus treatment. Patient acknowledged education and continued to assert her need to leave and get paperwork from my so he doesn't lose it. Advised patient to return to ED if she felt unwell including symptoms of withdrawal. Patient acknowledged. Original Note: Discharge note: Called into patient room at 1515, patient had removed tele and was changing into street clothes. Notified coordinator that patient wanted to leave against medical advice. After clarifying patient's status with [place] [employer], patient elected to leave AMA. Notified SKIP Pineda who sent prescription to [facility] in [place]. Removed IV and telemetry, notified ICU. Patient gathered belongings, no medications in pharmacy or belongings in safe to be retrieved. Patient dressed self and walked out under own power to ED entrance accompanied by BARREL STRAIGHTENER.
--- NOTE | 2020-12-25 17:02 | PC.NURSE ---
Pt called stating she had lost her antibiotics. Reviewed chart. Pt abx should have started on 12/14 or 12/15 and should have been completed by this date, for this reason I can not explore another prescription. Pt verbalized understanding. I encouraged her to return or f/u w/ her pCP if any concerns/ need to be re-seen.
== END 2020-12-16 16:53 | disposition left against medical advice (07) | DRG 894 ==
LOC: ED 22:55 → AC 12-14 01:10
PROVIDERS: Internal Medicine; Admitting Provider Nurse Practitioner Family; Emergency Provider Emergency Medicine; Referring Provider Emergency Medicine; Visit Provider Nurse Practitioner Family
DX: F10.139 Alcohol abuse with withdrawal, unspecified (principal); N39.0 Urinary tract infection, site not specified; Y90.0 Blood alcohol level of less than 20 mg/100 ml; F31.9 Bipolar disorder, unspecified; E83.42 Hypomagnesemia; F17.210 Nicotine dependence, cigarettes, uncomplicated
CPT/HCPCS: 36415; 80053; 80305; 80320; 81015; 82962; 83690; 83735; 84100; 85025; 85027; 85610; 87077; 87086; 87186; 87635; 96361; 96365; 96375; 99284; 99406; C9803; J1650; J2060; J2405; J3475

== ENCOUNTER 2022-08-20 13:58 | Emergency (ER) | payer OTHER, MEDICAID, SELFPAY ==
[2020-12-14 02:09] VITALS: BMI 22.6
[2022-08-20 14:07] VITALS: BP 149/89; PULSE 88; RESP 17; TEMP 36.8; O2SAT 98; BMI 25.9
[2022-08-20 15:53] VITALS: BP 136/78; PULSE 77; RESP 16; O2SAT 97
[2022-08-20] MEDS: MORPHINE 2 MG/ML INJ IV (16:16)
--- NOTE | 2022-08-20 16:36 | DI.CT.S_ITS ---
PROCEDURE: CT CHEST ABD PEL W CON INDICATIONS: Fall, flank pain, rib pain, extensive bruising TECHNIQUE: After the administration of intravenous contrast, 5 mm thick sections acquired from the lung apices to the symphysis. 2.5 mm thick coronal and sagittal reformats were acquired. Additional 7 mm thick coronal maximum intensity projection (MIP) reformats acquired through the lungs. Optional 10-minute delayed imaging may be performed from the kidneys to the bladder. For radiation dose reduction, the following was used: automated exposure control, adjustment of mA and/or kV according to patient size. COMPARISON: None. FINDINGS: Image quality: Excellent. CHEST: Lungs: No pulmonary contusions or lacerations. No focal airspace disease. Mild pulmonary emphysematous changes. No pneumothorax or hemothorax. Central and peripheral airways appear patent and normal in caliber. Bibasilar atelectasis most pronounced in the left lower lobe. Mediastinum: No mediastinal hematomas. Heart size is normal. No pericardial effusion. Thoracic aorta and pulmonary arteries demonstrate normal size and enhancement. No mediastinal or hilar adenopathy. Esophagus is normal in caliber. Small hiatal hernia. Chest wall: Mildly displaced posterior left 12th rib fracture. Age-indeterminate but chronic appearing healed rib fracture deformities of multiple right-sided ribs. No subcutaneous emphysema. No axillary or supraclavicular adenopathy. Thyroid gland is unremarkable. No suspicious chest wall lesions. ABDOMEN: Solid organs: Liver is normal in size and enhancement, without lacerations. Gallbladder demonstrates circumferential wall thickening slightly greater than expected for degree distension. No pericholecystic fluid. There is also mild prominence of the common bile duct and main pancreatic duct near the pancreatic head. No evidence for intraluminal filling defects or mass lesions or adenopathy in the periportal region or head of the pancreas. No intrahepatic biliary ductal dilatation. Pancreas enhances normally, without transection. Spleen is normal in size and enhancement, without lacerations. No adrenal hematomas. Both kidneys enhance normally, without hydronephrosis or lacerations. Peritoneum and bowel: No free fluid or air. Unenhanced bowel loops demonstrate normal wall thickness and caliber. Scattered colonic diverticulosis without acute diverticulitis. Nodes and vessels: No retroperitoneal or mesenteric adenopathy. Aorta and inferior vena cava are normal in size and enhancement. Miscellaneous: No ventral hernias. PELVIS: Genitourinary: Bladder wall thickness is normal. Miscellaneous: No inguinal hernias. No pelvic adenopathy. Bones: Pelvic ring and hip joints appear intact. No acute vertebral compression fractures. Multilevel spondylosis. Partially imaged postsurgical changes from open reduction and internal fixation of the proximal left femur with healed post traumatic fracture deformities of the left pelvis involving the superior pubic ramus. IMPRESSION: 1. Mildly displaced posterior left 12th rib fracture. No pneumothorax. Left basilar atelectasis. 2. Otherwise, no evidence for acute traumatic injury to the solid or hollow organs of the chest, abdomen, or pelvis. 3. Circumferential gallbladder wall thickening greater than expected for degree of distension without evidence for acute inflammatory changes. There is also mild prominence of the common bile duct and proximal segment of the main pancreatic duct. No CT evidence for choledocholithiasis or suspicious mass/adenopathy in the region. Recommend clinical and laboratory correlation . Consider further evaluation with right upper quadrant ultrasound if clinically indicated. 4. Small hiatal hernia. 5. Colonic diverticulosis without acute diverticulitis. 6. Partially imaged postsurgical changes of ORIF of the proximal left femur with presumed healed fracture deformities of the left superior pubic ramus. Otherwise, no other acute osseous abnormalities with exception of posterior left rib fracture as described above. 7. Mild pulmonary emphysematous changes. Dictated by: Kang Zapata M.D. on 08/20/2022 at 17:01 Approved by: Kang Zapata M.D. on 08/20/2022 at 17:25
--- NOTE | 2022-08-20 17:03 | ED_ITS ---
HPI - Back Pain/Injury <Darlene Scruggs PA-C - Last Filed: 08/20/22 17:52> General Chief Complaint: Back Pain/Injury Stated Complaint: slipped down stairs T-2 LT side is bruised Time Seen by Provider: 08/20/22 15:00 Source: patient History of Present Illness HPI Narrative: 57-year-old female with past medical history alcohol use disorder, alcohol withdrawal presents to the ED status post a mechanical fall sustained 3 days prior to arrival. Patient states that she sustained a mechanical trip and fall injury on some wet porch steps at her father's place. Patient landed on her back, states that since then her left flank has been excruciatingly painful, and that it is hard to move and walk around. Patient denies head strike, loss of consciousness. Patient is not on blood thinners. Patient denies fever, chills, chest pain, shortness of breath, abdominal pain, nausea, vomiting, dysuria, lightheadedness, dizziness, syncope. Patient denies numbness, tingling, weakness. Related Data Previous Rx's Medication Instructions Recorded oxycodone-acetaminophen 5 mg-325 1 tab PO Q6H PRN pain 3 days #12 08/20/22 mg tablet (Percocet) tabs Allergies Allergy/AdvReac Type Severity Reaction Status Date / Time No Known Drug Allergies Allergy Verified 08/20/22 14:10 Review of Systems <Darlene Scruggs PA-C - Last Filed: 08/20/22 17:52> Review of Systems ROS Unobtainable: All systems reviewed & are unremarkable except as noted in HPI and below Constitutional Constitutional: Denies chills, Denies fatigue, Denies fever(s), Denies frequent falls, Denies lethargy and Denies weakness Eyes Eyes: Denies change in vision, Denies eye discharge, Denies irritation and Denies loss of vision ENT Ears, Nose, Mouth, and Throat: Denies change in voice, Denies dizziness, Denies neck pain, Denies sore throat and Denies throat swelling Cardiovascular Cardiovascular: Denies chest pain, Denies irregular heart rhythm, Denies lightheadedness, Denies palpitations, Denies dyspnea, Denies dyspnea on exertion and Denies orthopnea Respiratory Respiratory: Denies cough, Denies dyspnea, Denies dyspnea on exertion and Denies wheezing Gastrointestinal Gastrointestinal: Denies abdominal pain, Denies change in bowel habits, Denies diarrhea, Denies nausea and Denies vomiting Genitourinary Genitourinary: Denies hematuria, Denies flank pain, Denies urinary incontinence and Denies urinary urgency Musculoskeletal Musculoskeletal: Denies back pain, Denies muscle weakness, Denies neck pain, Denies numbness and Denies tingling Comments: L flank pain Integumentary/Breasts Skin/Breast: Denies pruritus, Denies erythema, Denies rash and Denies wounds Neurologic Neurologic: Denies behavioral changes, Denies confusion, Denies dizziness, Denies frequent falls, Denies loss of vision, Denies numbness, Denies tingling and Denies weakness Psychiatric Psychiatric: Denies anxiety, Denies behavioral changes, Denies confusion, Denies depression, Denies homicidal ideation and Denies suicidal ideation Endocrine Endocrine: Denies fatigue, Denies flushing and Denies palpitations Hematologic/Lymphatic Hematologic/Lymphatic: Denies easy bruising Allergic/Immunologic Allergic/Immunologic: Denies urticaria, Denies throat swelling and Denies wheezing Patient History <Darlene Scruggs PA-C - Last Filed: 08/20/22 17:52> Medical History Alcohol use disorder Bipolar 1 disorder Depression with anxiety Hepatitis C Surgical History History of elbow surgery Family History Father Stroke Mother Diabetes mellitus Social History household members: significant other Smoking Status: Current some day smoker alcohol intake: current Smoking Status: Current some day smoker alcohol intake frequency: holidays/special occasions only Substance Use Type: does not use Exam <Darlene Scruggs PA-C - Last Filed: 08/20/22 17:52> Narrative Exam Narrative: Const General:?cooperative, healthy appearing and comfortable [facility] Head:?normal to inspection Ears:?hearing grossly normal bilaterally Nose:?external nose normal Face and sinus:?normal facial exam and sinuses nontender Mouth:?oral mucosae normal Throat:?posterior oropharynx normal Eyes General:?appearance normal, both eyes and all related structures Neck Neck:?normal visual inspection and no lymphadenopathy noted Resp Effort & Inspection:?normal respiratory effort Auscultation:?clear to auscultation bilaterally Cardio Rate:?regular rate Rhythm:?regular rhythm Musculoskeletal Extensive bruising on the left flank visualized on exam. Patient is exquisitely tender to palpation of the left flank and left lower ribs. No midline tendernes s to palpation. No paraspinal tenderness to palpation. There is full range of motion. GI Abdomen is soft, nondistended nontender to palpation. Neuro General:?patient alert, patient awake and patient oriented x3 Initial Vital Signs Initial Vital Signs: Vital Signs Temperature 98.2 F 08/20/22 14:07 Pulse Rate 88 08/20/22 14:07 Respiratory Rate 17 08/20/22 14:07 Blood Pressure 149/89 H 08/20/22 14:07 Pulse Oximetry 98 08/20/22 14:07 Oxygen Delivery Method 08/20/22 14:07 <DO Michell Jones Last Filed: 08/21/22 11:52> Initial Vital Signs Initial Vital Signs: Vital Signs Temperature 98.2 F 08/20/22 14:07 Pulse Rate 88 08/20/22 14:07 Respiratory Rate 17 08/20/22 14:07 Blood Pressure 149/89 H 08/20/22 14:07 Pulse Oximetry 98 08/20/22 14:07 Oxygen Delivery Method 08/20/22 14:07 Course <Darlene Scruggs PA-C - Last Filed: 08/20/22 17:52> Orders Ordered: Discontinued Medications Morphine Sulfate (Morphine 2 Mg/Ml Inj) 2 mg IV NOW ONE Stop: 08/20/22 16:00 Last Admin: 08/20/22 16:16 Dose: 2 mg Documented By: MARYAM Vital Signs Vital signs: Vital Signs - 8 hr 08/20/22 14:07 08/20/22 15:53 Temperature 98.2 F Pulse Rate 88 77 Respiratory Rate 17 16 Blood Pressure 149/89 H 136/78 Pulse Oximetry 98 97 Oxygen Delivery Method Room Air Room Air <DO Michell Jones Last Filed: 08/21/22 11:52> Orders Ordered: Discontinued Medications Morphine Sulfate (Morphine 2 Mg/Ml Inj) 2 mg IV NOW ONE Stop: 08/20/22 16:00 Last Admin: 08/20/22 16:16 Dose: 2 mg Documented By: MARYAM Vital Signs Vital signs: Vital Signs - 8 hr 08/20/22 14:07 08/20/22 15:53 Temperature 98.2 F Pulse Rate 88 77 Respiratory Rate 17 16 Blood Pressure 149/89 H 136/78 Pulse Oximetry 98 97 Oxygen Delivery Method Room Air Room Air MDM - Back Pain/Injury <Darlene Scruggs PA-C - Last Filed: 08/20/22 17:52> MDM Narrative Medical decision making narrative: 57-year-old female with past medical history alcohol use disorder, alcohol withdrawal presents to the ED status post a mechanical fall sustained 3 days prior to arrival. Concern for musculoskeletal sprain/strain versus fracture/dislocation versus intra-abdominal bleeding versus other. Will obtain labs, UA, CT chest abdomen pelvis. Will give morphine for pain. Will reassess. CT shows mildly displaced left-sided 12th rib fracture, but no other acute findings related to the injury. Discussed findings with patient and that treatment consists of pain control and letting the fracture heal without further interventions. Will prescribe Percocet for pain control. ED return precautions were discussed with patient. Patient verbalized understanding. Complicating co-morbidities:? Medical records reviewed:??yes ? Imaging studies independently reviewed:yes ? Disposition: see below, along with detailed discharge instructions that have been reviewed with patient as well as indications for ED re-evaluation and additional outpatient follow up Discharge Plan Departure Patient Disposition: Home Clinical Impression: Closed rib fracture Instructions: DI for Rib Fracture Activity Restrictions/Additional Instructions: You were evaluated in the ED today for a left flank injury. Your CT showed a fracture of your 12th rib on the left side, which explains your symptoms. There is no specific treatment for such a rib fracture other than pain control. You are being prescribed some pain medication for the next 3 days. Please be aware that the medication might make you feel sleepy and make you more prone to falls. Please follow-up with your PCP in 3-5 days. Return to the ED if your symptoms worsen or you have trouble breathing. Prescriptions: New oxycodone-acetaminophen [Percocet] 5-325 mg tablet 1 tab PO Q6H PRN (Reason: pain) 3 Days Qty: 12 0RF Referrals: Peyman Kerr DO [Primary Care Provider] - Stand Alone Forms: Patient Portal/API <Juan Francisco [place], DO - Last Filed: 08/21/22 11:52> Cosign ED Attending Cosignature Attestation: I was immediately available in the department for consultation. This documentation has been reviewed and I agree with assessment and plan. Supervised by Juan Francisco Partida DO
[2022-08-20 18:01] VITALS: BP 135/78; PULSE 80; RESP 17; O2SAT 98
== END 2022-08-20 18:01 | disposition home or self-care (01) ==
PROVIDERS: Emergency Provider Student in an Organized Health Care Education/Training Program; PCP Family Medicine
DX: S22.32XA Fracture of one rib, left side, initial encounter for closed fracture (principal); W18.30XA Fall on same level, unspecified, initial encounter
CPT/HCPCS: 71260; 74177; 96374; 99284; J2270

== ENCOUNTER → 2022-08-27 14:42 | Outpatient (CLI) | payer OTHER, MEDICAID, SELFPAY ==
[2020-12-14 02:09] VITALS: BMI 22.6
[2022-08-27 15:04] LABS: Add Manual Diff / Slide Review NO; Basophils Absolute Auto 100 /uL (0-100); Basophils Percent Auto 0.8 % (0-2); Eosinophils Absolute Auto 200 /uL (0-450); Eosinophils Percent Auto 2.2 % (2-4); Hematocrit 41.8 % (36-46); Lymphocytes Absolute Auto 1800 /uL (1100-4500); Lymphocytes Percent Auto 24.9 % (25-40); Mean Corpuscular HGB Conc 33.5 % (30-36); Mean Corpuscular Hemoglobin 31.5 PG (26-34); Mean Corpuscular Volume 93.9 fL (80-100); Monocytes Absolute Auto 1000 /uL (0-900); Monocytes Percent Auto 13.3 % (3-14); Neutrophils Absolute Auto 4400 /uL (1500-7000); Neutrophils Percent Auto 58.8 % (50-75); Platelet Count 388 X10^3/uL (150-400); Red Blood Cell Count 4.45 X10^6/uL (4.0-5.2); Red Cell Distribution Width 13.3 % (11.6-14.8); White Blood Cell Count 7.4 X10^3/uL (4.5-11.0)
[2022-08-27 15:15] LABS: Hemoglobin A1C% w Est Avg Glu 6.6 % (4.0-6.0)
[2022-08-27 15:16] LABS: Alanine Aminotransferase 88 IU/L (<35); Albumin 4.2 g/dL (3.5-5.0); Alkaline Phosphatase 90 U/L (38-126); Aspartate Aminotransferase 56 IU/L (14-36); BUN Creatinine Ratio 24.6 (6-22); Bilirubin Total 0.6 mg/dL (0.2-1.3); Blood Urea Nitrogen 15 mg/dL (7-17); Calcium 9.5 mg/dL (8.4-10.2); Carbon Dioxide 25 mmol/L (22-32); Chloride 103 mmol/L (98-107); Cholesterol 210 mg/dL (140-199); Estimated Glomerular Filt Rate > 60 mL/min (>60); Globulin 4.4 g/dL (1.7-4.1); Glucose 126 mg/dL (70-100); HDL Cholesterol 40 mg/dL (40-60); HEMOLYSIS < 15 (0-50); LDL Cholesterol Calculated 141 mg/dL (<100); Potassium 4.3 mmol/L (3.4-5.1); Sodium 138 mmol/L (137-145); Total Protein 8.6 g/dL (6.3-8.2); Triglycerides 147 mg/dL (35-150)
== END ==
PROVIDERS: PCP Family Medicine; Referring Provider Family Medicine; Visit Provider Family Medicine
DX: K21.9 Gastro-esophageal reflux disease without esophagitis (principal); R35.89 Other polyuria; R73.9 Hyperglycemia, unspecified; Z13.1 Encounter for screening for diabetes mellitus; Z13.220 Encounter for screening for lipoid disorders
CPT/HCPCS: 36415; 80053; 80061; 83036; 85025

== ENCOUNTER 2022-09-17 21:48 | Emergency (ER) | payer OTHER, MEDICAID, SELFPAY ==
[2020-12-14 02:09] VITALS: BMI 22.6
[2022-09-17] VITALS (7 sets, daily range): BP systolic 117–156; BP diastolic 56–75; PULSE 97–108; RESP 22; TEMP 36.6; O2SAT 94–98; BMI 25.7
--- NOTE | 2022-09-17 21:49 | DI.CT.S_ITS ---
PROCEDURE: CT HEAD/BRAIN WO CON INDICATIONS: Fall and hit head TECHNIQUE: Noncontrast 4.5 mm thick angled axial sections acquired from the foramen magnum to the vertex, with coronal and sagittal reformats. For radiation dose reduction, the following was used: automated exposure control, adjustment of mA and/or kV according to patient size. COMPARISON: None. FINDINGS: Image quality: Excellent. CSF spaces: Basal cisterns are patent. No extra-axial fluid collections. Ventricles are normal in size and shape. Brain: No midline shift. No intracranial masses or hemorrhage. Arboleda-white matter interface is normal. Skull and face: Possible slight impacted nasal bone fracture of uncertain chronicity. Calvarium and visualized facial bones are otherwise intact, without suspicious lesions. Sinuses: Visualized sinuses and mastoids are clear. IMPRESSION: 1. 1. No CT evidence of acute intracranial trauma. 2. No significant soft tissue injury or underlying skull fracture. 3. Questionable nasal bone fracture, chronicity uncertain. Correlate clinically. Dictated by: Lesia Gómez M.D. on 09/17/2022 at 22:50 Approved by: Lesia Gómez M.D. on 09/17/2022 at 22:51
--- NOTE | 2022-09-17 21:49 | DI.CT.S_ITS ---
PROCEDURE: CT CERVICAL SPINE WO CON INDICATIONS: Fall with neck pain TECHNIQUE: Noncontrast 3 mm thick sections acquired from the skull base to the T4 level. Sagittal and coronal reformats were then constructed. For radiation dose reduction, the following was used: automated exposure control, adjustment of mA and/or kV according to patient size. COMPARISON: None. FINDINGS: Image quality: Excellent. Bones: There is a type 2 odontoid fracture with 2.7 mm of distraction and 2.6 mm posterior displacement. There is a tiny chip fracture off the inferior portion of C1 in the same plane. The remainder of the C1 ring is intact. There are degenerative changes at the craniocervical junction and superior atlantodental interval. Elsewhere in the cervical spine there is moderate anterior and posterior endplate spurring and marked right and moderate left facet arthropathy. There is a very large anterior endplate osteophyte C6-C7. Questionable nondisplaced T2 anterior compression fracture. Soft tissues: Mild diffuse prevertebral soft tissue thickening in the upper cervical region. There is no swelling anterior to T2, however the esophagus is slightly dilated and fluid-filled. No paravertebral hematomas. No apical pneumothoraces. IMPRESSION: 1. Unstable, minimally distracted and minimally displaced, type 2 odontoid fracture. 2. Questionable nondisplaced T2 anterior compression fracture. 3. Esophageal dilatation containing fluid. 4. Prominent osteophyte at C6-7. 5. Discussed with Dr. Granda in the emergency room at 22:54 hours. Dictated by: Lesia Gómez M.D. on 09/17/2022 at 22:51 Approved by: Lesia Gómez M.D. on 09/17/2022 at 23:05
--- NOTE | 2022-09-17 21:54 | ED_ITS ---
HPI - General Adult General Chief complaint: Trauma Stated complaint: Fall w/ etoh involved Time Seen by Provider: 09/17/22 21:49 Source: patient, family and EMS Mode of arrival: EMS Limitations: other (Alcohol intoxication) History of Present Illness HPI narrative: Patient is a 57-year-old female. Has a history of alcohol use disorder and hepatitis-C. Not on anticoagulation. Was brought in by EMS not in backboard not in a cervical collar for evaluation of neck pain after woke was initially reported as a fall 2 days ago. The patient states she was drinking at the time of the fall. She does drink every day. She does not remember the event. She states she did not think much of the fall because she was not having any discomfort afterwards however since the fall she is had discomfort in her neck whenever she moves. When she is not moving she does not have any discomfort. She also sustained an abrasion to her forehead. She reports no other injuries from the event. States she is no numbness and tingling in her upper or lower extremities. Related Data Previous Rx's Medication Instructions Recorded lansoprazole 30 mg capsule,delayed 30 mg PO DAILY #30 caps 08/27/22 release (Prevacid) oxycodone-acetaminophen 5 mg-325 1 tab PO Q8H PRN pain #20 tabs 08/27/22 mg tablet Allergies Allergy/AdvReac Type Severity Reaction Status Date / Time No Known Drug Allergies Allergy Verified 08/27/22 14:19 Review of Systems Review of Systems ROS Unobtainable: All systems reviewed & are unremarkable except as noted in HPI and below Patient History Medical History Alcohol use disorder Bipolar 1 disorder Depression with anxiety GERD (gastroesophageal reflux disease) Hepatitis C Tobacco dependence Surgical History History of elbow surgery Family History Father Stroke Mother Diabetes mellitus Social History household members: significant other Smoking Status: Current some day smoker alcohol intake: current Smoking Status: Current some day smoker alcohol intake frequency: holidays/special occasions only Substance Use Type: does not use Exam Initial Vital Signs Initial Vital Signs: Vital Signs Pulse Rate 108 H 09/17/22 21:54 Respiratory Rate 22 09/17/22 21:54 Blood Pressure 156/75 H 09/17/22 21:54 Pulse Oximetry 98 09/17/22 21:54 Oxygen Delivery Method 09/17/22 21:54 Const General: comfortable, No acute distress and No ill appearing HENMT Head: contusion (Left-sided forehead), No hematoma and No laceration Face and sinus: normal facial exam Mouth: oral mucosae normal Chest Chest: No crepitus and No tenderness Resp Effort & Inspection: normal respiratory effort Auscultation: clear to auscultation bilaterally Cardio Rate: regular rate Rhythm: regular rhythm GI Inspection: normal to inspection Palpation: soft and No tender Back/Spine/Pelvis Cervical Spine: No cervical muscular tenderness and No cervical spinal tenderness Thoracic/Lumbar Spine: No thoracic spinal tenderness Skin Other: Contusion to left forehead Neuro General: patient alert, patient awake and moves all extremities Speech: speech normal Extrem General: normal to inspection, capillary refill normal and No edema Psych Appearance: disheveled Scores GCS Eladio coma scale eye opening: Spontaneous Eladio coma scale verbal response: Orientated [place] coma scale motor response: [place] commands [place] coma scale total score: 15 Course Orders Ordered: ED Orders 09/17/22 21:49 CT cervical spine wo con Stat CT head/brain wo con Stat 09/17/22 23:05 Complete Blood Count AUTO DIFF Stat Comprehensive Metabolic Panel Stat Ethanol (ETOH) Stat 09/17/22 23:45 COVID19 -Nasal RAPID/Pre-Proc Stat Discontinued Medications Hydromorphone HCl (Hydromorphone 0.5 Mg Inj) 0.5 mg IV NOW ONE Stop: 09/17/22 23:20 Last Admin: 09/17/22 23:45 Dose: 0.5 mg Documented By: OTIS Hydromorphone HCl (Hydromorphone 0.5 Mg Inj) 0.5 mg IV NOW ONE Stop: 09/18/22 02:06 Last Admin: 09/18/22 02:10 Dose: 0.5 mg Documented By: OTIS Vital Signs Vital signs: Vital Signs - 8 hr 09/17/22 21:54 09/17/22 22:10 09/17/22 22:11 Temperature Pulse Rate 108 H 106 H Respiratory Rate 22 Blood Pressure 156/75 H 135/70 Pulse Oximetry 98 95 Oxygen Delivery Method Room Air 09/17/22 22:11 09/17/22 22:30 09/17/22 22:30 Temperature Pulse Rate 104 H 97 H Respiratory Rate Blood Pressure 117/56 L Pulse Oximetry 96 95 Oxygen Delivery Method 09/17/22 22:51 09/17/22 23:00 09/17/22 23:00 Temperature 97.9 F Pulse Rate 101 H Respiratory Rate Blood Pressure 129/65 Pulse Oximetry 94 Oxygen Delivery Method 09/17/22 23:30 09/17/22 23:30 09/18/22 00:00 Temperature Pulse Rate 105 H 99 H Respiratory Rate Blood Pressure 150/67 H Pulse Oximetry 95 97 Oxygen Delivery Method 09/18/22 00:30 09/18/22 01:00 09/18/22 01:30 Temperature Pulse Rate 97 H 87 92 H Respiratory Rate Blood Pressure Pulse Oximetry 97 96 98 Oxygen Delivery Method Medical Decision Making Lab Data Lab results reviewed: Yes I reviewed the patient's lab results. 09/17/22 23:05 09/17/22 23:05 Labs: Lab Results 09/17/22 09/17/22 09/17/22 Range/Units 23:05 23:05 23:45 WBC 9.1 (4.5-11.0) X10^3/uL RBC 4.70 (4.0-5.2) X10^6/uL Hgb 14.7 (12.0-16.0) g/dL Hct 43.8 (36-46) % MCV 93.1 (80-100) fL MCH 31.2 (26-34) PG MCHC 33.5 (30-36) % RDW 13.3 (11.6-14.8) % Plt Count 396 (150-400) X10^3/uL Neut % (Auto) 69.0 (50-75) % Lymph % (Auto) 20.4 L (25-40) % [place] % (Auto) 9.7 (3-14) % Eos % (Auto) 0.5 L (2-4) % Baso % (Auto) 0.4 (0-2) % Neut # (Auto) 6300 (5172-8101) /uL Lymph # (Auto) 1900 (0070-6860) /uL [place] # (Auto) 900 (0-900) /uL Eos # (Auto) 0 (0-450) /uL Baso # (Auto) 0 (0-100) /uL Sodium 145 (137-145) mmol/L Potassium 3.7 (3.4-5.1) mmol/L Chloride 105 (98-107) mmol/L Carbon Dioxide 18 L (22-32) mmol/L BUN 12 (7-17) mg/dL Creatinine 0.42 L (0.52-1.04) mg/dL Estimated GFR > 60 (>60) mL/min BUN/Creatinine Ratio 28.6 H (6-22) Glucose 151 H (70-100) mg/dL Calcium 9.0 (8.4-10.2) mg/dL Total Bilirubin 0.6 (0.2-1.3) mg/dL AST 134 H (14-36) IU/L ALT 183 H (<35) IU/L Alkaline Phosphatase 154 H (38-126) U/L Total Protein 9.4 H (6.3-8.2) g/dL Albumin 4.6 (3.5-5.0) g/dL Globulin 4.8 H (1.7-4.1) g/dL Albumin/Globulin Ratio 1.0 (1.0-2.8) Ethyl Alcohol 326 H ( - 10) mg/dL SARS-CoV-2 (PCR) Negative (Negative) Imaging Data CT scan - head: Radiologist's Impression: [address] [address] [address] Scan Report Signed Patient: Sabrina Solomon MR#: [id number] : 1965 Acct:[id number] Age/Sex: 57 / F Date of Service: 09/17/22 Loc: ED Accession Number: [id number] ?? Procedure: CT head/brain wo con Ordering Provider: Khris Granda D.O. PROCEDURE:? CT HEAD/BRAIN WO CON ? INDICATIONS:? Fall and hit head ? TECHNIQUE:? Noncontrast 4.5 mm thick angled axial sections acquired from the foramen magnum to the vertex, with coronal and sagittal reformats.? For radiation dose reduction, the following was used:? automated exposure control, adjustment of mA and/or kV according to patient size.? ? COMPARISON:? None. ? FINDINGS:? Image quality:? Excellent.? ? CSF spaces:? Basal cisterns are patent.? No extra-axial fluid collections.? Ventricles are normal in size and shape.? ? Brain:? No midline shift.? No intracranial masses or hemorrhage.? Arboleda-white matter interface is normal.? ? Skull and face:? Possible slight impacted nasal bone fracture of uncertain chronicity.? Calvarium and visualized facial bones are otherwise intact, without suspicious lesions.? ? Sinuses:? Visualized sinuses and mastoids are clear.? ? IMPRESSION:? ? 1. 1. No CT evidence of acute intracranial trauma. ? 2. No significant soft tissue injury or underlying skull fracture. ? 3. Questionable nasal bone fracture, chronicity uncertain.? Correlate clinically. ? ? ? Dictated by: Lesia Gómez M.D. on 09/17/2022 at 22:50 ? ? Approved by: Lesia Gómez M.D. on 09/17/2022 at 22:51?? CT - cervical spine: Radiologist's Impression: [place] [address] CT Scan Report Signed Patient: Sabrina Solomon MR#: [id number] : 1965 Acct:[id number] Age/Sex: 57 / F Date of Service: 09/17/22 Loc: ED Accession Number: [id number] ?? Procedure: CT cervical spine wo con Ordering Provider: Khris Granda D.O. PROCEDURE:? CT CERVICAL SPINE WO CON ? INDICATIONS:? Fall with neck pain ? TECHNIQUE:? Noncontrast 3 mm thick sections acquired from the skull base to the T4 level.? Sagittal and coronal reformats were then constructed.? For radiation dose reduction, the following was used:? automated exposure control, adjustment of mA and/or kV according to patient size.? ? COMPARISON:? None. ? FINDINGS:? Image quality:? Excellent.? ? Bones:? There is a type 2 odontoid fracture with 2.7 mm of distraction and 2.6 mm posterior displacement.? There is a tiny chip fracture off the inferior portion of C1 in the same plane.? The remainder of the C1 ring is intact.? There are degenerative changes at the craniocervical junction and superior atlantodental interval. ? Elsewhere in the cervical spine there is moderate anterior and posterior endplate spurring and marked right and moderate left facet arthropathy.? There is a very large anterior endplate osteophyte C6-C7. ? Questionable nondisplaced T2 anterior compression fracture. ? Soft tissues:? Mild diffuse prevertebral soft tissue thickening in the upper cervical region.? There is no swelling anterior to T2, however the esophagus is slightly dilated and fluid-filled.? No paravertebral hematomas.? No apical pneumothoraces.? ? ? IMPRESSION:? ? 1. Unstable, minimally distracted and minimally displaced, type 2 odontoid fracture. ? 2. Questionable nondisplaced T2 anterior compression fracture. ? 3. Esophageal dilatation containing fluid. ? 4. Prominent osteophyte at C6-7. ? 5. Discussed with Dr. Granda in the emergency room at 22:54 hours. ? Dictated by: Lesia Gómez M.D. on 09/17/2022 at 22:51 ? ? Approved by: Lesia Gómez M.D. on 09/17/2022 at 23:05?? MDM Narrative Medical decision making narrative: Upon arrival the patient was not having any cervical spinal tenderness to palpation nor paraspinal tenderness but she is obviously intoxicated and she states that the fall happened while she was intoxicated. A cervical collar was placed upon arrival. She is a contusion of her left forehead which needs no specific intervention. She reports no other injuries from the event. She is neurologically intact to the best of her ability to follow directions given her intoxication. She is moving all [address] is unremarkable. The cervical spine CT does show a type 2 odontoid fractures and potentially other fractures associated with this. The rigid collar was switched to a [place] collar. The patient's daughter eventually arrived at bedside and stated that the patient actually fell yesterday so was more like 24 hours ago rather than 48 hours ago. I did discuss the case with the transfer center at [facility]. They accepted the patient in transfer. Dr. Levin was the accepting provider. I did not specifically speak with any of the providers. Patient is stable for transport. Patient is informed of the need for transfer. Patient's daughter is also informed the need for transfer. They expressed understanding and agreement. Discharge Plan Departure Patient Disposition: [facility] Clinical Impression: Closed type II fracture of odontoid process, Alcohol intoxication, Forehead contusion Prescriptions: No Action oxycodone-acetaminophen 5-325 mg tablet 1 tab PO Q8H PRN (Reason: pain) Qty: 20 0RF lansoprazole [Prevacid] 30 mg capsule,delayed release(DR/EC) 30 mg PO DAILY Qty: 30 11RF Referrals: Peyman Kerr DO [Primary Care Provider] -
--- NOTE | 2022-09-17 23:15 | PC.NURSE ---
[place] collar applied maintaining c-spine alignment
[2022-09-17 23:39] LABS: Alanine Aminotransferase 183 IU/L (<35); Albumin 4.6 g/dL (3.5-5.0); Alkaline Phosphatase 154 U/L (38-126); Aspartate Aminotransferase 134 IU/L (14-36); BUN Creatinine Ratio 28.6 (6-22); Bilirubin Total 0.6 mg/dL (0.2-1.3); Blood Urea Nitrogen 12 mg/dL (7-17); Carbon Dioxide 18 mmol/L (22-32); Chloride 105 mmol/L (98-107); Estimated Glomerular Filt Rate > 60 mL/min (>60); Globulin 4.8 g/dL (1.7-4.1); Glucose 151 mg/dL (70-100); HEMOLYSIS 42 (0-50); Potassium 3.7 mmol/L (3.4-5.1); Sodium 145 mmol/L (137-145); Total Protein 9.4 g/dL (6.3-8.2)
[2022-09-17 23:43] LABS: Add Manual Diff / Slide Review NO; Basophils Absolute Auto 0 /uL (0-100); Basophils Percent Auto 0.4 % (0-2); Eosinophils Absolute Auto 0 /uL (0-450); Eosinophils Percent Auto 0.5 % (2-4); Hematocrit 43.8 % (36-46); Hemoglobin 14.7 g/dL (12.0-16.0); Lymphocytes Absolute Auto 1900 /uL (1100-4500); Lymphocytes Percent Auto 20.4 % (25-40); Mean Corpuscular HGB Conc 33.5 % (30-36); Mean Corpuscular Hemoglobin 31.2 PG (26-34); Mean Corpuscular Volume 93.1 fL (80-100); Monocytes Absolute Auto 900 /uL (0-900); Monocytes Percent Auto 9.7 % (3-14); Neutrophils Absolute Auto 6300 /uL (1500-7000); Platelet Count 396 X10^3/uL (150-400); Red Cell Distribution Width 13.3 % (11.6-14.8); White Blood Cell Count 9.1 X10^3/uL (4.5-11.0)
[2022-09-17 23:45] LABS: Ethanol (ETOH) 326 mg/dL
[2022-09-17] MEDS: HYDROMORPHONE 0.5 MG INJ IV (23:45)
[2022-09-18] VITALS: PULSE 99; O2SAT 97
[2022-09-18 00:14] LABS: COVID19 -Nasal RAPID Negative (Negative)
[2022-09-18 00:30] VITALS: PULSE 97; O2SAT 97
[2022-09-18 01:00] VITALS: PULSE 87; O2SAT 96
[2022-09-18 01:30] VITALS: PULSE 92; O2SAT 98
[2022-09-18] MEDS: HYDROMORPHONE 0.5 MG INJ IV (02:10)
== END 2022-09-18 02:19 | disposition short-term general hospital (02) ==
PROVIDERS: Emergency Provider Emergency Medicine; PCP Family Medicine
DX: S12.110A Anterior displaced Type II dens fracture, initial encounter for closed fracture (principal); S00.83XA Contusion of other part of head, initial encounter; M54.2 Cervicalgia; F10.129 Alcohol abuse with intoxication, unspecified; Y90.8 Blood alcohol level of 240 mg/100 ml or more; Z20.822 Contact with and (suspected) exposure to COVID-19
CPT/HCPCS: 36415; 70450; 72125; 80053; 80320; 85025; 87635; 96374; 96375; 99284; C9803; J1170

== ENCOUNTER 2023-11-19 01:21 | Emergency (ER) | payer OTHER, MEDICAID, SELFPAY ==
[2023-10-30 10:02] VITALS: BMI 22.6
[2023-11-19] VITALS (16 sets, daily range): BP systolic 91–158; BP diastolic 52–84; PULSE 71–91; RESP 13–32; TEMP 33–35.7; O2SAT 90–98; BMI 30.2
--- NOTE | 2023-11-19 01:27 | DI.CT.S_ITS ---
PROCEDURE: CT CERVICAL SPINE WO CON INDICATIONS: ETOH, GLF, HEAD/NECK PAIN TECHNIQUE: Noncontrast 3 mm thick sections acquired from the skull base to the T4 level. Sagittal and coronal reformats were then constructed. For radiation dose reduction, the following was used: automated exposure control, adjustment of mA and/or kV according to patient size. COMPARISON: [facility], CT, CT CERVICAL SPINE WO CON, 09/17/2022, 21:53. FINDINGS: Image quality: Excellent. Bones: No fractures or dislocations. Degenerative and spondylitic changes are noted. There are large paravertebral osteophytes at C5-C6 and C6-C7. Mild anterior compression deformity at C7. Visualized superior ribs are intact. Soft tissues: Prevertebral soft tissues are normal in thickness. No paravertebral hematomas. No apical pneumothoraces. IMPRESSION: No acute displaced fracture or traumatic subluxation. No significant discrepancy with the manufacturing shift supervisor radiology preliminary report. Dictated by: Maya Barnes M.D. on 11/19/2023 at 6:59 Approved by: Maya Barnes M.D. on 11/19/2023 at 7:01
--- NOTE | 2023-11-19 01:27 | DI.CT.S_ITS ---
PROCEDURE: CT HEAD/BRAIN WO CON INDICATIONS: ETOH, GLF, HEAD/NECK PAIN TECHNIQUE: Noncontrast 4.5 mm thick angled axial sections acquired from the foramen magnum to the vertex, with coronal and sagittal reformats. For radiation dose reduction, the following was used: automated exposure control, adjustment of mA and/or kV according to patient size. COMPARISON: [facility], CT, CT HEAD/BRAIN WO CON, 09/17/2022, 21:53. FINDINGS: Image quality: Diagnostic. CSF spaces: Basal cisterns are patent. No extra-axial fluid collections. The ventricles are symmetric in size and shape. Brain: No intracranial bleeds or masses. There is cerebral volume loss for age, with resultant ventricular and sulcal prominence. There are mild periventricular and deep white matter chronic small vessel ischemic changes. There is intracranial internal carotid artery atherosclerosis. Skull and face: Calvarium and visualized facial bones appear intact, without suspicious lesions. Sinuses: Visualized sinuses and mastoids are clear. IMPRESSION: 1. No acute intracranial abnormalities. 2. Cerebral volume loss and chronic microvascular ischemic changes. No significant discrepancy with the toby maker radiology preliminary report. Dictated by: Maya Barnes M.D. on 11/19/2023 at 6:58 Approved by: Maya Barnes M.D. on 11/19/2023 at 6:59
--- NOTE | 2023-11-19 01:28 | ED_ITS ---
HPI - Alcohol General Chief Complaint: Fall Stated Complaint: fell Time Seen by Provider: 11/19/23 01:23 History of Present Illness HPI narrative: 58-year-old female with history of alcohol abuse, hepatitis C presents by private vehicle for evaluation after fall with head injury. History is obtained from daughter at bedside who provides the history. Daughter states that the patient wandered out of the house at 7pm. [employer] called her stating that they had found her in the parking lot of a store with abrasions to her forehead. EMS evaluated the patient and recommended she be evaluated in the emergency department and they elected to come private vehicle. Daughter states that wandering off and becoming drunk and disorderly is unfortunately a typical behavior of the patient and she was acting consistent with her previous episodes Related Data Previous Rx's Medication Instructions Recorded lansoprazole 30 mg capsule,delayed 30 mg PO DAILY #30 caps 08/27/22 release (Prevacid) oxycodone-acetaminophen 5 mg-325 1 tab PO Q8H PRN pain #20 tabs 08/27/22 mg tablet Allergies Allergy/AdvReac Type Severity Reaction Status Date / Time No Known Drug Allergies Allergy Verified 08/27/22 14:19 Review of Systems Review of Systems Narrative: Unable to obtain due to medical condition Patient History Medical History Acne (~01/02/22) PTSD (post-traumatic stress disorder) (~2009) Anxiety (~2009) Fractures Ankle pain (~1999) History of urinary incontinence (~2019) GERD (gastroesophageal reflux disease) Tobacco dependence Depression with anxiety (~2009) Bipolar 1 disorder Hepatitis C (~1984) Alcohol use disorder Surgical History Anesthesia History of ankle surgery (~1999) History of knee surgery (~2011) History of elbow surgery (~1988) Family History Father Stroke Cancer Mother Diabetes mellitus Social History household members: significant other Smoking Status: Current some day smoker alcohol intake: current Smoking Status: Current some day smoker alcohol intake frequency: 3 or more drinks per day Substance Use Type: does not use Exam Narrative Exam Narrative: Const: intoxicated, appears disheveled, chronically unwell Cardiac: regular rate, regular rhythm RESP: unlabored, clear bilaterally, no wheezing Skin: large abrasion without laceration anterior scalp Neuro: intoxicated, moves all extremities Initial Vital Signs Initial Vital Signs: Vital Signs Pulse Rate 91 H 11/19/23 01:29 Pulse Oximetry 98 11/19/23 01:29 Course Orders Ordered: ED Orders 11/19/23 01:27 CT cervical spine wo con Stat CT head/brain wo con Stat 11/19/23 02:35 CBC Auto Diff [Complete Blood Count AUTO DIFF] Stat CK [Creatine Kinase] Stat CMP [Comprehensive Metabolic Panel] Stat Ethanol (ETOH) Stat MAG [Magnesium] Stat Discontinued Medications Diphtheria/Tetanus/Acell Pertussis (Tet,Diph,Pertuss(Acell),Vac/Pf 0.5 Ml Syringe) 0.5 ml IM .ONCE ONE Stop: 11/19/23 01:28 Last Admin: 11/19/23 01:33 Dose: 0.5 ml Documented By: SD Folic Acid (Folic Acid 1 Mg Tablet) 1 mg PO NOW ONE Stop: 11/19/23 01:29 Last Admin: 11/19/23 01:33 Dose: 1 mg Documented By: SD Sodium Chloride (Normal Saline 0.9%) 1,000 mls @ 1,000 mls/hr IV BOLUS ONE Stop: 11/19/23 02:30 Last Infusion: 11/19/23 02:42 Dose: Infused Documented By: Admin: 11/19/23 01:37 Dose: 1,000 mls/hr Documented By: SD Sodium Chloride (Normal Saline 0.9%) 1,000 mls @ 1,000 mls/hr IV BOLUS ONE Stop: 11/19/23 04:15 Last Admin: 11/19/23 03:17 Dose: 1,000 mls/hr Thiamine HCl (Thiamine 100 Mg Tablet) 200 mg PO NOW ONE Stop: 11/19/23 01:29 Last Admin: 11/19/23 01:32 Dose: 200 mg Documented By: SD Vital Signs Vital signs: Vital Signs - 8 hr 11/19/23 01:29 11/19/23 01:30 11/19/23 01:32 Temperature Pulse Rate 91 H 89 Respiratory Rate Blood Pressure 147/84 H Pulse Oximetry 98 97 Oxygen Delivery Method 11/19/23 01:32 11/19/23 01:39 11/19/23 02:05 Temperature 93.2 F L Pulse Rate 83 76 88 Respiratory Rate 13 17 32 H Blood Pressure 147/84 H Pulse Oximetry 97 94 96 Oxygen Delivery Method Room Air 11/19/23 02:08 11/19/23 02:08 11/19/23 02:30 Temperature Pulse Rate 83 74 Respiratory Rate 17 18 Blood Pressure 158/74 H Pulse Oximetry 98 97 Oxygen Delivery Method 11/19/23 03:00 11/19/23 03:01 11/19/23 03:02 Temperature Pulse Rate 73 73 Respiratory Rate 18 18 Blood Pressure 119/75 Pulse Oximetry Oxygen Delivery Method 11/19/23 03:02 11/19/23 03:14 11/19/23 03:30 Temperature 91.4 F L Pulse Rate 72 Respiratory Rate 20 Blood Pressure 108/61 Pulse Oximetry Oxygen Delivery Method 11/19/23 03:30 11/19/23 04:00 11/19/23 04:00 Temperature 94.3 F L Pulse Rate 75 71 Respiratory Rate 24 17 Blood Pressure 97/52 L Pulse Oximetry 96 94 Oxygen Delivery Method Room Air Room Air 11/19/23 04:30 11/19/23 04:30 Temperature Pulse Rate 78 Respiratory Rate 18 Blood Pressure 91/55 L Pulse Oximetry 90 L Oxygen Delivery Method Room Air MDM - Alcohol Lab Data 11/19/23 02:35 11/19/23 02:35 Labs: Lab Results 11/19/23 Range/Units 02:35 WBC 6.4 (4.5-11.0) X10^3/uL RBC 4.78 (4.0-5.2) X10^6/uL Hgb 15.1 (12.0-16.0) g/dL Hct 44.9 (36-46) % MCV 94.1 (80-100) fL MCH 31.5 (26-34) PG MCHC 33.5 (30-36) % RDW 13.3 (11.6-14.8) % Plt Count 341 (150-400) X10^3/uL Neut % (Auto) 63.8 (50-75) % Lymph % (Auto) 25.2 (25-40) % [place] % (Auto) 9.4 (3-14) % Eos % (Auto) 0.7 L (2-4) % Baso % (Auto) 0.9 (0-2) % Neut # (Auto) 4100 (7342-2653) /uL Lymph # (Auto) 1600 (0549-2945) /uL [place] # (Auto) 600 (0-900) /uL Eos # (Auto) 0 (0-450) /uL Baso # (Auto) 100 (0-100) /uL Sodium 145 (137-145) mmol/L Potassium 3.9 (3.4-5.1) mmol/L Chloride 111 H (98-107) mmol/L Carbon Dioxide 22 (22-32) mmol/L BUN 11 (7-17) mg/dL Creatinine 0.45 L (0.52-1.04) mg/dL Estimated GFR > 60 (>60) mL/min BUN/Creatinine Ratio 24.4 H (6-22) Glucose 198 H (70-100) mg/dL Calcium 8.9 (8.4-10.2) mg/dL Magnesium 1.7 (1.6-2.3) mg/dL Total Bilirubin 0.4 (0.2-1.3) mg/dL AST 114 H (14-36) IU/L ALT 145 H (<35) IU/L Alkaline Phosphatase 90 (38-126) U/L Total Creatine Kinase 220 H (30-135) U/L Total Protein 8.7 H (6.3-8.2) g/dL Albumin 4.5 (3.5-5.0) g/dL Globulin 4.2 H (1.7-4.1) g/dL Albumin/Globulin Ratio 1.1 (1.0-2.8) Ethyl Alcohol 269 H ( - 10) mg/dL [facility] Narrative Medical decision making narrative: Patient with alcohol intoxication presenting for evaluation after head injury. She has an abrasion on her scalp, is ambulatory with assistance from her daughter. Per daughter this is typical behavior when she drinks alcohol. Uncertain when last tetanus shot was administered, update given in the emergency department as well as thiamine and folic acid. Patient noted to be cool with mottled skin on arrival with temperature 93.2? F. we will order labs and patient to be actively warmed with warm fluids, blankets, Angelita Hugger. Labs show elevated liver enzymes, similar to previous. CT imaging negative for acute traumatic findings. Patient resting comfortably in bed in her blankets, acting appropriately. Daughter at bedside. Patient observed until temperature 96F and discharged to care of her family Discharge Plan Departure Patient Disposition: Home Clinical Impression: Abrasion of scalp, Alcohol intoxication Instructions: DI for Alcohol Use Disorder, DI for Abrasion Activity Restrictions/Additional Instructions: Your CT imaging today did not show any fractures or bleeds. Your tetanus shot was updated today. Your laboratory work showed that you have some liver damage from your alcohol use, but otherwise is normal. I highly recommend that you stop drinking as continued alcohol use we will only continue to damage your liver Prescriptions: No Action oxycodone-acetaminophen 5-325 mg tablet 1 tab PO Q8H PRN (Reason: pain) Qty: 20 0RF lansoprazole [Prevacid] 30 mg capsule,delayed release(DR/EC) 30 mg PO DAILY Qty: 30 11RF Referrals: Peyman Kerr DO [Primary Care Provider] - Stand Alone Forms: Patient Portal/API
[2023-11-19] MEDS: THIAMINE 100 MG TABLET 200 MG PO (01:32)
[2023-11-19] MEDS: TET,DIPH,PERTUSS(ACELL),VAC/PF 0.5 ML SYRINGE IM (01:33)
[2023-11-19] MEDS: FOLIC ACID 1 MG TABLET PO (01:33)
[2023-11-19] MEDS: SODIUM CHLORIDE 0.9% 1,000 ML 1000 ML IV ×2 (01:37→03:17)
--- NOTE | 2023-11-19 01:40 | PC.NURSE ---
Patient's temperature is 93.2. Patient is mottled. Dr. Monterroso notified, abraham reyes applied on high heat. Warm IV fluids started, see MAR.
[2023-11-19 02:41] LABS: Add Manual Diff / Slide Review NO; Basophils Absolute Auto 100 /uL (0-100); Basophils Percent Auto 0.9 % (0-2); Eosinophils Absolute Auto 0 /uL (0-450); Eosinophils Percent Auto 0.7 % (2-4); Hematocrit 44.9 % (36-46); Hemoglobin 15.1 g/dL (12.0-16.0); Lymphocytes Absolute Auto 1600 /uL (1100-4500); Lymphocytes Percent Auto 25.2 % (25-40); Mean Corpuscular HGB Conc 33.5 % (30-36); Mean Corpuscular Hemoglobin 31.5 PG (26-34); Mean Corpuscular Volume 94.1 fL (80-100); Monocytes Absolute Auto 600 /uL (0-900); Monocytes Percent Auto 9.4 % (3-14); Neutrophils Absolute Auto 4100 /uL (1500-7000); Neutrophils Percent Auto 63.8 % (50-75); Platelet Count 341 X10^3/uL (150-400); Red Blood Cell Count 4.78 X10^6/uL (4.0-5.2); Red Cell Distribution Width 13.3 % (11.6-14.8); White Blood Cell Count 6.4 X10^3/uL (4.5-11.0)
[2023-11-19 02:56] LABS: Alanine Aminotransferase 145 IU/L (<35); Albumin 4.5 g/dL (3.5-5.0); Albumin Globulin Ratio 1.1 (1.0-2.8); Alkaline Phosphatase 90 U/L (38-126); Aspartate Aminotransferase 114 IU/L (14-36); BUN Creatinine Ratio 24.4 (6-22); Bilirubin Total 0.4 mg/dL (0.2-1.3); Blood Urea Nitrogen 11 mg/dL (7-17); Calcium 8.9 mg/dL (8.4-10.2); Carbon Dioxide 22 mmol/L (22-32); Chloride 111 mmol/L (98-107); Creatine Kinase 220 U/L (30-135); Estimated Glomerular Filt Rate > 60 mL/min (>60); Ethanol (ETOH) 269 mg/dL; Globulin 4.2 g/dL (1.7-4.1); Glucose 198 mg/dL (70-100); HEMOLYSIS 21 (0-50); Magnesium 1.7 mg/dL (1.6-2.3); Potassium 3.9 mmol/L (3.4-5.1); Sodium 145 mmol/L (137-145); Total Protein 8.7 g/dL (6.3-8.2)
[2023-11-19] MEDS: BACITRACIN OINT 0.9 GM PCKT 1 APPLIC TOP (04:49)
== END 2023-11-19 05:06 | disposition home or self-care (01) ==
PROVIDERS: Emergency Provider Emergency Medicine; PCP Family Medicine
DX: S00.01XA Abrasion of scalp, initial encounter (principal); F10.129 Alcohol abuse with intoxication, unspecified; Y90.8 Blood alcohol level of 240 mg/100 ml or more; W18.30XA Fall on same level, unspecified, initial encounter; Z23 Encounter for immunization
CPT/HCPCS: 36415; 70450; 72125; 80053; 80320; 82550; 83735; 85025; 90471; 96360; 96361; 99284; 90715

== ENCOUNTER 2024-02-04 16:57 | Emergency (ER) | payer OTHER, MEDICAID, SELFPAY ==
[2023-10-30 10:02] VITALS: BMI 22.6
[2024-02-04] VITALS (17 sets, daily range): BP systolic 133–203; BP diastolic 80–101; PULSE 90–101; RESP 13–41; TEMP 36.6; O2SAT 92–98; BMI 27.4
--- NOTE | 2024-02-04 17:24 | DI.RAD.S_ITS ---
PROCEDURE: XR HIP W PEL IF DONE LT 2V INDICATIONS: GLF. bruising TECHNIQUE: AP pelvis with lateral view(s) of the left hip(s). COMPARISON: None. FINDINGS: Bones: There is an intertrochanteric left proximal femur fracture with posterior displacement of the distal fragment. Intramedullary femoral leilani is present. The hardware appears intact. There is a deformity of a healed distal femoral fracture. There is deformity of a probably healed left superior pubic ramus fracture although acute impaction fracture cannot be excluded. Soft tissues: The visualized bowel gas pattern is normal. No suspicious soft tissue calcifications. IMPRESSION: Intertrochanteric, mildly displaced left proximal femur fracture. Intramedullary femoral leilani is intact. Remote left pelvic fracture. Dictated by: Lesia Gómez M.D. on 02/04/2024 at 19:36 Approved by: Lesia Gómez M.D. on 02/04/2024 at 19:40
--- NOTE | 2024-02-04 17:31 | DI.RAD.S_ITS ---
PROCEDURE: XR CHEST 1V INDICATIONS: altered mental status TECHNIQUE: One view of the chest was acquired. COMPARISON: None. FINDINGS: Surgical changes and devices: None. Lungs and pleura: Right hemithorax volume loss and elevation of the diaphragm. The aerated left lung is clear. Mediastinum: Mild cardiomegaly. Aerated hiatal hernia. Air in the esophagus. No central vascular congestion. Bones and chest wall: Impacted right chest wall deformity contributing to volume loss. Remote left lateral 3rd rib fracture. IMPRESSION: Given probably chronic right hemithorax volume loss due to fractures and elevated diaphragm, no definite acute airspace disease. Aerated hiatal hernia and air in the esophagus. Dictated by: Lesia Gómez M.D. on 02/04/2024 at 19:40 Approved by: Lesia Gómez M.D. on 02/04/2024 at 19:41
--- NOTE | 2024-02-04 17:47 | EKG_ITS ---
[address] [id number] Test Date: 2024-02-04 Pat Name: Sabrina Solomon Department: Room: Gender: Female Soil Technologist: GISELLE : 1965 Requested By: Order Number: [id number] Reading MD: Kendall Quinteros Measurements Intervals [place] Rate: 94 P: 57 DE: 176 QRS: 27 QRSD: 80 T: 39 QT: 390 QTc: 487 Interpretive Statements Normal sinus rhythm Prolonged QT Electronically Signed On 02-10-2024 8:59:02 PDT by Kendall Quinteros
[2024-02-04 17:49] LABS: Add Manual Diff / Slide Review NO; Basophils Absolute Auto 100 /uL (0-100); Basophils Percent Auto 0.9 % (0-2); Eosinophils Absolute Auto 0 /uL (0-450); Eosinophils Percent Auto 0.6 % (2-4); Hematocrit 42.3 % (36-46); Hemoglobin 14.2 g/dL (12.0-16.0); Lymphocytes Absolute Auto 1700 /uL (1100-4500); Lymphocytes Percent Auto 27.8 % (25-40); Mean Corpuscular HGB Conc 33.5 % (30-36); Mean Corpuscular Hemoglobin 31.3 PG (26-34); Mean Corpuscular Volume 93.5 fL (80-100); Monocytes Absolute Auto 700 /uL (0-900); Monocytes Percent Auto 10.5 % (3-14); Neutrophils Absolute Auto 3800 /uL (1500-7000); Neutrophils Percent Auto 60.2 % (50-75); Platelet Count 350 X10^3/uL (150-400); Red Blood Cell Count 4.52 X10^6/uL (4.0-5.2); White Blood Cell Count 6.3 X10^3/uL (4.5-11.0)
--- NOTE | 2024-02-04 17:54 | ED_ITS ---
HPI - Fall General Chief Complaint: Fall Stated Complaint: GLF Time Seen by Provider: 02/04/24 17:53 Source: patient and EMS Mode of arrival: EMS History of Present Illness HPI Narrative: Patient is a 58-year-old female history of alcohol abuse, hepatitis-C presents today by ambulance after found down. She apparently fell around midnight and has been on the floor ever since. She has covered in urine. She is awake and alert is overall poor historian and can not give me much history. She does have pain in her left hip. Overall dirty and disheveled Related Data Previous Rx's Medication Instructions Recorded lansoprazole 30 mg capsule,delayed 30 mg PO DAILY #30 caps 08/27/22 release (Prevacid) oxycodone-acetaminophen 5 mg-325 1 tab PO Q8H PRN pain #20 tabs 08/27/22 mg tablet Allergies Allergy/AdvReac Type Severity Reaction Status Date / Time No Known Drug Allergies Allergy Verified 08/27/22 14:19 Patient History Medical History Acne (~01/02/22) PTSD (post-traumatic stress disorder) (~2009) Anxiety (~2009) Fractures Ankle pain (~1999) History of urinary incontinence (~2019) GERD (gastroesophageal reflux disease) Tobacco dependence Depression with anxiety (~2009) Bipolar 1 disorder Hepatitis C (~1984) Alcohol use disorder Surgical History Anesthesia History of ankle surgery (~1999) History of knee surgery (~2011) History of elbow surgery (~1988) Family History Father Stroke Cancer Mother Diabetes mellitus Social History household members: significant other Smoking Status: Current some day smoker alcohol intake: current Smoking Status: Current some day smoker alcohol intake frequency: 3 or more drinks per day Substance Use Type: does not use Exam Initial Vital Signs Initial Vital Signs: Vital Signs Temperature 97.8 F 02/04/24 17:17 Pulse Rate 100 H 02/04/24 17:17 Respiratory Rate 18 02/04/24 17:17 Blood Pressure 133/101 H 02/04/24 17:17 Pulse Oximetry 93 02/04/24 17:17 Oxygen Delivery Method Room Air 02/04/24 17:17 GENERAL: Awake alert cooperative 58-year-old female appears older than age HEENT: Head atraumatic,EOMI, pupils reactive, face symmetric, moist mucous membranes CARDIOVASCULAR: Regular rate and rhythm without murmurs, rubs or gallops. RESPIRATORY: Breath sounds equal bilaterally, no wheezes rales or rhonchi. ABDOMEN: Soft, nontender. Normoactive bowel sounds all 4 quadrants. No guarding or rebound. EXTREMITIES: Normal range of motion, no clubbing or edema. Neurovascularly intact Significant pain in the left hip legs are of equal length distal pedal pulse intact no knee injury right hip nontender no other obvious abnormalities NEUROLOGICAL: Alert and oriented x4. SKIN: Warm, dry, no laceration, no petechiae, no rashes or lesions. Course Orders Ordered: ED Orders 02/04/24 22:00 Urine Culture Stat Urine Drug Screen, Rapid Stat Urine Microscopic Stat Discontinued Medications Hydromorphone HCl (Hydromorphone 0.5 Mg Inj) 0.5 mg IV NOW ONE Stop: 02/04/24 20:42 Last Admin: 02/04/24 20:51 Dose: 0.5 mg Documented By: PEDRO LUIS Hydromorphone HCl (Hydromorphone 1 Mg Inj) 1 mg IV NOW ONE Stop: 02/04/24 22:19 Last Admin: 02/04/24 22:37 Dose: 1 mg Documented By: PEDRO LUIS Sodium Chloride (Normal Saline 0.9%) 1,000 mls @ 125 mls/hr IV CONT CONNOR Last Admin: 02/04/24 18:54 Dose: 125 mls/hr Documented By: WISAM Thiamine HCl 200 mg/ Sodium (Chloride) 102 mls @ 408 mls/hr IV DAILY CONNOR Thiamine HCl 200 mg/ Sodium (Chloride) 102 mls @ 408 mls/hr IV NOW ONE Stop: 02/04/24 20:13 Last Infusion: 02/04/24 21:16 Dose: Infused Documented By: PEDRO LUIS Admin: 02/04/24 20:39 Dose: 408 mls/hr Documented By: PEDRO LUIS Ceftriaxone Sodium 1,000 mg/ (Sodium Chloride) 100 mls @ 200 mls/hr IV NOW ONE Stop: 02/04/24 22:45 Last Infusion: 02/04/24 23:41 Dose: Infused Documented By: PEDRO LUIS Admin: 02/04/24 23:01 Dose: 200 mls/hr Documented By: PEDRO LUIS Phenobarbital (Phenobarbital 65 Mg/Ml Vial) 130 mg IV NOW ONE Stop: 02/04/24 22:28 Last Admin: 02/04/24 22:38 Dose: 130 mg Documented By: PEDRO LUIS Vital Signs Vital signs: Vital Signs - 8 hr 02/04/24 20:00 02/04/24 20:00 02/04/24 20:30 Pulse Rate 91 H 94 H Respiratory Rate 25 H 19 Blood Pressure 152/86 H Pulse Oximetry 95 95 02/04/24 20:30 02/04/24 21:00 02/04/24 21:00 Pulse Rate 96 H Respiratory Rate 20 Blood Pressure 167/81 H 168/89 H Pulse Oximetry 96 02/04/24 21:30 02/04/24 21:31 02/04/24 21:31 Pulse Rate 100 H 97 H Respiratory Rate 29 H 23 Blood Pressure 190/80 H Pulse Oximetry 98 98 02/04/24 22:00 02/04/24 22:00 02/04/24 22:30 Pulse Rate 98 H 101 H Respiratory Rate 26 H 20 Blood Pressure 203/97 H Pulse Oximetry 97 95 02/04/24 22:30 02/04/24 22:58 02/04/24 22:58 Pulse Rate 95 H Respiratory Rate 13 Blood Pressure 189/94 H 162/85 H 166/88 H Pulse Oximetry 95 02/04/24 23:00 02/04/24 23:00 Pulse Rate 94 H Respiratory Rate 17 Blood Pressure 162/85 H Pulse Oximetry 93 MDM - Fall Lab Data 02/04/24 16:34 02/04/24 16:34 Labs: Lab Results 02/04/24 02/04/24 02/04/24 Range/Units 16:30 16:34 16:40 WBC 6.3 (4.5-11.0) X10^3/uL RBC 4.52 (4.0-5.2) X10^6/uL Hgb 14.2 (12.0-16.0) g/dL Hct 42.3 (36-46) % MCV 93.5 (80-100) fL MCH 31.3 (26-34) PG MCHC 33.5 (30-36) % RDW 14.0 (11.6-14.8) % Plt Count 350 (150-400) X10^3/uL Neut % (Auto) 60.2 (50-75) % Lymph % (Auto) 27.8 (25-40) % [place] % (Auto) 10.5 (3-14) % Eos % (Auto) 0.6 L (2-4) % Baso % (Auto) 0.9 (0-2) % Neut # (Auto) 3800 (4321-2521) /uL Lymph # (Auto) 1700 (7781-3017) /uL [place] # (Auto) 700 (0-900) /uL Eos # (Auto) 0 (0-450) /uL Baso # (Auto) 100 (0-100) /uL Sodium 141 (137-145) mmol/L Potassium 3.4 (3.4-5.1) mmol/L Chloride 102 (98-107) mmol/L Carbon Dioxide 24 (22-32) mmol/L BUN 8 (7-17) mg/dL Creatinine 0.51 L (0.52-1.04) mg/dL Estimated GFR > 60 (>60) mL/min BUN/Creatinine Ratio 15.7 (6-22) Glucose 277 H (70-100) mg/dL Lactate 2.5 H (0.7-2.1) mmol/L Calcium 8.4 (8.4-10.2) mg/dL Total Bilirubin 0.5 (0.2-1.3) mg/dL AST 264 H (14-36) IU/L ALT 258 H (<35) IU/L Alkaline Phosphatase 116 (38-126) U/L Ammonia < 9 L (9-30) umol/L Total Creatine Kinase 266 H (30-135) U/L Troponin I < 0.012 (0.01-0.034) ng/mL Total Protein 8.6 H (6.3-8.2) g/dL Albumin 4.2 (3.5-5.0) g/dL Globulin 4.4 H (1.7-4.1) g/dL Albumin/Globulin Ratio 1.0 (1.0-2.8) Urine RBC (0-5/HPF) Urine WBC (0-5/HPF) Ur Squamous Epith Cells (0-5/HPF) Urine Bacteria (None) Ur Culture Indicated? Vol Urine Centrifuged Salicylates < 1.0 (<20) mg/dL U Opiates 300ng/mL cut (Negative) Ur Oxycodone Screen (Negative) Urine Methadone Screen (Negative) Acetaminophen < 10 (10-30) ug/mL Ur Barbiturates Screen (Negative) U Tricyclic Antidepress (Negative) Ur Phencyclidine Scrn (Negative) Ur Amphetamines Screen (Negative) U Methamphetamines Scrn (Negative) Ur MDMA Scrn (Ecstasy) (Negative) U Benzodiazepines Scrn (Negative) Urine Cocaine Screen (Negative) U Marijuana (THC) Screen (Negative) Urine pH (Normal) Urine Specific [place] (Normal) Ethyl Alcohol 478 H* ( - 10) mg/dL Ur Creatinine (Normal) 02/04/24 02/04/24 Range/Units 21:00 22:00 WBC (4.5-11.0) X10^3/uL RBC (4.0-5.2) X10^6/uL Hgb (12.0-16.0) g/dL Hct (36-46) % MCV (80-100) fL MCH (26-34) PG MCHC (30-36) % RDW (11.6-14.8) % Plt Count (150-400) X10^3/uL Neut % (Auto) (50-75) % Lymph % (Auto) (25-40) % [place] % (Auto) (3-14) % Eos % (Auto) (2-4) % Baso % (Auto) (0-2) % Neut # (Auto) (5296-6644) /uL Lymph # (Auto) (0018-2992) /uL [place] # (Auto) (0-900) /uL Eos # (Auto) (0-450) /uL Baso # (Auto) (0-100) /uL Sodium (137-145) mmol/L Potassium (3.4-5.1) mmol/L Chloride (98-107) mmol/L Carbon Dioxide (22-32) mmol/L BUN (7-17) mg/dL Creatinine (0.52-1.04) mg/dL Estimated GFR (>60) mL/min BUN/Creatinine Ratio (6-22) Glucose (70-100) mg/dL Lactate 3.0 H (0.7-2.1) mmol/L Calcium (8.4-10.2) mg/dL Total Bilirubin (0.2-1.3) mg/dL AST (14-36) IU/L ALT (<35) IU/L Alkaline Phosphatase (38-126) U/L Ammonia (9-30) umol/L Total Creatine Kinase (30-135) U/L Troponin I (0.01-0.034) ng/mL Total Protein (6.3-8.2) g/dL Albumin (3.5-5.0) g/dL Globulin (1.7-4.1) g/dL Albumin/Globulin Ratio (1.0-2.8) Urine RBC None seen (0-5/HPF) Urine WBC 1-5/hpf (0-5/HPF) Ur Squamous Epith Cells 0-1 /hpf (0-5/HPF) Urine Bacteria Many (>30) H (None) Ur Culture Indicated? Specimen cultured Vol Urine Centrifuged 10ml (spun) Salicylates (<20) mg/dL U Opiates 300ng/mL cut Negative (Negative) Ur Oxycodone Screen Negative (Negative) Urine Methadone Screen Negative (Negative) Acetaminophen (10-30) ug/mL Ur Barbiturates Screen Negative (Negative) U Tricyclic Antidepress Negative (Negative) Ur Phencyclidine Scrn Negative (Negative) Ur Amphetamines Screen Negative (Negative) U Methamphetamines Scrn Negative (Negative) Ur MDMA Scrn (Ecstasy) Negative (Negative) U Benzodiazepines Scrn Negative (Negative) Urine Cocaine Screen Negative (Negative) U Marijuana (THC) Screen Negative (Negative) Urine pH Normal (Normal) Urine Specific [place] Normal (Normal) Ethyl Alcohol ( - 10) mg/dL Ur Creatinine Normal (Normal) Point of Care Testing Glucose POC 261 Urine Dip Bedside Urine Glucose 1000 mg/dl Bedside Urine Bilirubin - Negative Bedside Urine Ketone ++ 40 Urine Specific [place] 1.020 Bedside Urine Occult Blood - Negative Bedside Urine pH 6.0 Bedside Urine Protein +/- 15 Bedside Urine Urobilinogen - Negative Bedside Urine Nitrite + Positive Bedside Urine Leukocytes - Negative Esterase Imaging Data Extremity x-ray #1: Radiologist's Impression: PROCEDURE: XR HIP W PEL IF DONE LT 2V INDICATIONS: GLF. bruising TECHNIQUE: AP pelvis with lateral view(s) of the left hip(s). COMPARISON: None. FINDINGS: Bones: There is an intertrochanteric left proximal femur fracture with posterior displacement of the distal fragment. Intramedullary femoral leilani is present. The hardware appears intact. There is a deformity of a healed distal femoral fracture. There is deformity of a probably healed left superior pubic ramus fracture although acute impaction fracture cannot be excluded. Soft tissues: The visualized bowel gas pattern is normal. No suspicious soft tissue calcifications. IMPRESSION: Intertrochanteric, mildly displaced left proximal femur fracture. Intramedullary femoral leilani is intact. Remote left pelvic fracture. Dictated by: Lesia Gómez M.D. on 02/04/2024 at 19:36 Chest x-ray: Radiologist's Impression: PROCEDURE: XR CHEST 1V INDICATIONS: altered mental status TECHNIQUE: One view of the chest was acquired. COMPARISON: None. FINDINGS: Surgical changes and devices: None. Lungs and pleura: Right hemithorax volume loss and elevation of the diaphragm. The aerated left lung is clear. Mediastinum: Mild cardiomegaly. Aerated hiatal hernia. Air in the esophagus. No central vascular congestion. Bones and chest wall: Impacted right chest wall deformity contributing to volume loss. Remote left lateral 3rd rib fracture. IMPRESSION: Given probably chronic right hemithorax volume loss due to fractures and elevated diaphragm, no definite acute airspace disease. Aerated hiatal hernia and air in the esophagus. Dictated by: Lesia Gómez M.D. on 02/04/2024 at 19:40 CT - cervical spine: Radiologist's Impression: PROCEDURE: CT CERVICAL SPINE WO CON INDICATIONS: fall TECHNIQUE: Noncontrast 3 mm thick sections acquired from the skull base to the T4 level. Sagittal and coronal reformats were then constructed. For radiation dose reduction, the following was used: automated exposure control, adjustment of mA and/or kV according to patient size. COMPARISON: [facility], CT, CT CERVICAL SPINE WO CON, 11/19/2023, 1:42. FINDINGS: Image quality: Excellent. Bones: No fractures or dislocations. C1-C2 posterior spinal fixation hardware in place. Hardware appears intact without evidence of complication. Redemonstration of multilevel degenerative changes, most pronounced at C5-C6 and C6-C7. Decreased osseous mineralization. Visualized superior ribs are intact. Soft tissues: Prevertebral soft tissues are normal in thickness. No paravertebral hematomas. No apical pneumothoraces. IMPRESSION: No displaced fracture or traumatic subluxation. Dictated by: Imtiaz Corral M.D. on 02/04/2024 at 17:43 CT scan - head: Radiologist's Impression: PROCEDURE: CT HEAD/BRAIN WO CON INDICATIONS: fall TECHNIQUE: Noncontrast 4.5 mm thick angled axial sections acquired from the foramen magnum to the vertex, with coronal and sagittal reformats. For radiation dose reduction, the following was used: automated exposure control, adjustment of mA and/or kV according to patient size. COMPARISON: [facility], CT, CT HEAD/BRAIN WO CON, 11/19/2023, 1:42. FINDINGS: Image quality: Diagnostic. CSF spaces: Basal cisterns are patent. No extra-axial fluid collections. Ventricles are normal in size and shape. Brain: No midline shift. No intracranial masses or hemorrhage. Arboleda-white matter interface is normal. Skull and face: Calvarium and visualized facial bones are intact, without suspicious lesions. Minimally displaced nasal bone fractures of uncertain chronicity. Left orbital floor fracture appears chronic. Sinuses: Visualized sinuses and mastoids are clear. IMPRESSION: 1. No CT evidence of acute intracranial trauma. 2. No significant soft tissue injury or underlying fracture. 3. Nasal bone and left orbital floor fractures are likely chronic. Dictated by: Lesia Gómez M.D. on 02/04/2024 at 18:36 ECG Data Attestation: I personally reviewed and interpreted this ECG as follows: Prior ECG tracings: not available for review Interpretation: Sinus rhythm rate 94 MD interval 176 QRS 80 QTC 487 low voltage no ischemia MDM Narrative Medical decision making narrative: MDM CC: Found down Complicating co-morbidities: Alcohol abuse hepatitis-C Medical records reviewed: Previous ED visit 11/19/2023 Differential considered: Intracranial hemorrhage intoxication rhabdo sepsis Exam documented above, pertinent findings include: Disheveled dirty pain in left hip Lab Test results independently reviewed as above. Pertinent findings: WBC 6.3, hemoglobin 14.2, hematocrit 42.3 platelets 350, sodium 141, potassium 3.4, chloride 102, carbon dioxide 24, BUN 8, creatinine 0.5, glucose 277, lactate 2.5 with repeat 3.0 AST 264 previously 114 ALT 258 previously 145, alk-phos 116, bilirubin 0.5, CPK 266 troponin negative Urinalysis is positive for nitrates Alcohol level 478 Independently reviewed EKG as above no ischemia Imaging studies independently reviewed: CT head negative for hemorrhage CT neck negative for fracture chest x-ray negative hip fracture is found have intro can tearing fracture with prior hardware Consultations: 19:56 Dr. Carrillo, on-call orthopedics has reviewed x-rays himself recommends that patient be transferred to higher level of care Treatments: Rocephin, Dilaudid, phenobarbital Re-evaluations: No shaking is getting more awake and appropriate Discussion: Patient 58-year-old female with known alcoholism presents today is ground level fall. She is found to have a left intertrochanteric fracture with prior hardware. Unable to do surgery here at this facility needs higher level of care. She is found to have an elevated lactate of 2.5 initially did not suspect infection however urinalysis is positive for nitrate she has given a dose of Rocephin. She has no leukocytosis and is afebrile. Repeat lactate is going IV fluids are started. Drug screen is negative no evidence of other toxicology. Patient is accepted at [facility] by Dr. Kruse, ED, and Dr. Wu, Ortho. Critical Care Time Critical Care Time Critical Care Time: Yes Total Critical Care Time: 41 Attestation: The high probability of a clinically significant, sudden or life threatening deterioration of the [cardiovascular] system(s) required my full and direct attention, intervention and personal management. The aggregate critical care time was 41 minutes. This time is in addition to time spent performing reported procedures but includes the following: [x] Data Review and interpretation [x] Patient assessment and monitoring of vital signs [x] Documentation [x] Medication orders and management Discharge Plan Departure Patient Disposition: [facility] Clinical Impression: Perla-prosthetic femoral shaft fracture, UTI (urinary tract infection), Alcohol intoxication Prescriptions: No Action oxycodone-acetaminophen 5-325 mg tablet 1 tab PO Q8H PRN (Reason: pain) Qty: 20 0RF lansoprazole [Prevacid] 30 mg capsule,delayed release(DR/EC) 30 mg PO DAILY Qty: 30 11RF Referrals: Peyman Kerr DO [Primary Care Provider] -
[2024-02-04 17:55] LABS: Alanine Aminotransferase 258 IU/L (<35); Albumin 4.2 g/dL (3.5-5.0); Alkaline Phosphatase 116 U/L (38-126); Aspartate Aminotransferase 264 IU/L (14-36); BUN Creatinine Ratio 15.7 (6-22); Bilirubin Total 0.5 mg/dL (0.2-1.3); Blood Urea Nitrogen 8 mg/dL (7-17); Calcium 8.4 mg/dL (8.4-10.2); Carbon Dioxide 24 mmol/L (22-32); Chloride 102 mmol/L (98-107); Creatine Kinase 266 U/L (30-135); Estimated Glomerular Filt Rate > 60 mL/min (>60); Globulin 4.4 g/dL (1.7-4.1); Glucose 277 mg/dL (70-100); HEMOLYSIS < 15 (0-50); Potassium 3.4 mmol/L (3.4-5.1); Sodium 141 mmol/L (137-145); Total Protein 8.6 g/dL (6.3-8.2)
[2024-02-04 18:00] LABS: Ammonia (NH3) < 9 umol/L (9-30)
[2024-02-04 18:30] LABS: Lactate (Lactic Acid) 2.5 mmol/L (0.7-2.1)
[2024-02-04 18:43] LABS: Troponin I < 0.012 ng/mL (0.01-0.034)
[2024-02-04] MEDS: SODIUM CHLORIDE 0.9% 1,000 ML 125 ML IV (18:54)
[2024-02-04 19:58] LABS: Reflexed Lactate in 2 Hours Y
[2024-02-04] MEDS: THIAMINE 200 MG in SODIUM CHLORIDE 0.9% 100 ML 408 MG IV (20:39)
[2024-02-04 20:45] LABS: Ethanol (ETOH) 478 mg/dL
[2024-02-04] MEDS: HYDROMORPHONE 0.5 MG INJ IV (20:51)
[2024-02-04 22:18] LABS: Ur Creatinine Normal (Normal); Ur Specific Gravity Normal (Normal); Urine pH Normal (Normal)
[2024-02-04 22:19] LABS: Urine Amphetamines Negative (Negative); Urine Barbiturates Negative (Negative); Urine Benzodiazepines Negative (Negative); Urine Cocaine Negative (Negative); Urine MDMA Negative (Negative); Urine Methadone Negative (Negative); Urine Methamphetamines Negative (Negative); Urine Opiates Negative (Negative); Urine Oxycodone Negative (Negative); Urine Phencyclidine Negative (Negative); Urine THC Negative (Negative); Urine Tricyclic Antidepressant Negative (Negative)
[2024-02-04 22:24] LABS: Bacteria Urine Many (>30); Culture Indicated Urine Specimen Cultured; RBC Urine None Seen (0-5/HPF); Squamous Epithelial Cell Urine 0-1 /HPF (0-5/HPF); Urine Volume 10mL (spun); WBC Urine 1-5/HPF (0-5/HPF)
[2024-02-04] MEDS: HYDROMORPHONE 1 MG INJ IV (22:37)
[2024-02-04] MEDS: PHENobarbital 65 MG/ML VIAL 130 MG IV (22:38)
[2024-02-04] MEDS: cefTRIAXone 1,000 MG in SODIUM CHLORIDE 0.9% 100 ML 200 MG IV (23:01)
[2024-02-04 23:25] LABS: Acetaminophen < 10 ug/mL (10-30); Salicylate < 1.0 mg/dL (<20)
== END 2024-02-04 23:46 | disposition short-term general hospital (02) ==
PROVIDERS: Emergency Medicine; Emergency Provider Emergency Medicine; PCP Family Medicine
DX: S72.142A Displaced intertrochanteric fracture of left femur, initial encounter for closed fracture (principal); M97.02XA Periprosthetic fracture around internal prosthetic left hip joint, initial encounter; N39.0 Urinary tract infection, site not specified; F10.129 Alcohol abuse with intoxication, unspecified; W18.30XA Fall on same level, unspecified, initial encounter; Y90.8 Blood alcohol level of 240 mg/100 ml or more
CPT/HCPCS: 70450; 71045; 72125; 73502; 80053; 80305; 80320; 80329; 81003; 81015; 82140; 82550; 82962; 83605; 84484; 85025; 87077; 87086; 87186; 93005; 96365; 96367; 96375; 96376; 99284; G0480; J0696; J1170; J2560

== ENCOUNTER → 2024-04-02 15:02 | Outpatient (CLI) | payer OTHER, MEDICAID, SELFPAY ==
[2023-10-30 10:02] VITALS: BMI 22.6
[2024-04-02 16:19] LABS: Add Manual Diff / Slide Review NO; Basophils Absolute Auto 100 /uL (0-100); Basophils Percent Auto 1.3 % (0-2); Eosinophils Absolute Auto 100 /uL (0-450); Hematocrit 43.6 % (36-46); Hemoglobin 14.2 g/dL (12.0-16.0); Lymphocytes Absolute Auto 2800 /uL (1100-4500); Lymphocytes Percent Auto 38.8 % (25-40); Mean Corpuscular HGB Conc 32.7 % (30-36); Mean Corpuscular Hemoglobin 30.2 PG (26-34); Mean Corpuscular Volume 92.2 fL (80-100); Monocytes Absolute Auto 900 /uL (0-900); Monocytes Percent Auto 12.4 % (3-14); Neutrophils Absolute Auto 3200 /uL (1500-7000); Neutrophils Percent Auto 45.5 % (50-75); Platelet Count 458 X10^3/uL (150-400); Red Blood Cell Count 4.72 X10^6/uL (4.0-5.2); Red Cell Distribution Width 13.6 % (11.6-14.8); White Blood Cell Count 7.1 X10^3/uL (4.5-11.0)
[2024-04-02 16:44] LABS: Alanine Aminotransferase 66 IU/L (<35); Albumin 4.4 g/dL (3.5-5.0); Alkaline Phosphatase 97 U/L (38-126); Aspartate Aminotransferase 53 IU/L (14-36); BUN Creatinine Ratio 31.3 (6-22); Bilirubin Total 0.7 mg/dL (0.2-1.3); Blood Urea Nitrogen 15 mg/dL (7-17); Carbon Dioxide 20 mmol/L (22-32); Chloride 106 mmol/L (98-107); Cholesterol 194 mg/dL (140-199); Estimated Glomerular Filt Rate > 60 mL/min (>60); Globulin 4.6 g/dL (1.7-4.1); Glucose 122 mg/dL (70-100); HDL Cholesterol 38 mg/dL (40-60); HEMOLYSIS < 15 (0-50); LDL Cholesterol Calculated 117 mg/dL (<100); Potassium 3.8 mmol/L (3.4-5.1); Sodium 139 mmol/L (137-145); Triglycerides 194 mg/dL (35-150)
[2024-04-02 16:52] LABS: Hemoglobin A1C% w Est Avg Glu 6.5 % (4.0-6.0)
[2024-04-02 18:21] LABS: Bilirubin Urine UA NEGATIVE (NEGATIVE); Color Urine UA ORANGE; Glucose Urine UA NEGATIVE (Negative); Ketones Urine UA NEGATIVE (NEGATIVE); Leukocyte Esterase Urine UA 1+ (NEGATIVE); Nitrite Urine UA POSITIVE (Negative); Occult Blood Urine UA NEGATIVE (Negative); Protein Urine UA NEGATIVE (Negative); Specific Gravity Urine UA 1.025 (1.000-1.035); pH Urine UA 5.5 (4.5-8.0)
[2024-04-02 18:22] LABS: Appearance Urine UA CLOUDY
[2024-04-02 18:31] LABS: Bacteria Urine Many (>30); Culture Indicated Urine Specimen Cultured; RBC Urine None Seen (0-5/HPF); Squamous Epithelial Cell Urine 1-5 /HPF (0-5/HPF); Urine Volume 10mL (spun); WBC Urine 10-30/HPF (0-5/HPF)
[2024-04-02 19:21] LABS: Creatinine Urine Random 135.78 mg/dL
[2024-04-02 19:26] LABS: Microalbumin Urine Random 1.7 mg/dL (0-1.6)
== END ==
PROVIDERS: PCP Family Medicine; Referring Provider Family Medicine; Visit Provider Family Medicine
DX: F31.9 Bipolar disorder, unspecified (principal); E11.9 Type 2 diabetes mellitus without complications
CPT/HCPCS: 80053; 80061; 81001; 82043; 82570; 83036; 85025; 86803; 87077; 87086; 87389

== ENCOUNTER → 2024-04-14 08:07 | Outpatient (CLI) | payer OTHER, MEDICAID, SELFPAY ==
[2023-10-30 10:02] VITALS: BMI 22.6
--- NOTE | 2024-04-14 | DI.CT.S_ITS ---
PROCEDURE: CT ABDOMEN RENAL PROTOCOL INDICATIONS: EVAL OF RENAL LESION ON US FROM OUTSIDE FACILITY TECHNIQUE: Optional 5 mm thick noncontrast images acquired from the diaphragm to the iliac crests. After the administration of intravenous contrast, 5 mm thick images again acquired from the diaphragm to the iliac crests in the arterial and urographic phases. 5 mm thick coronal and sagittal reformats were then acquired. For radiation dose reduction, the following was used: automated exposure control, adjustment of mA and/or kV according to patient size. COMPARISON: Outside Facility, US, US ABDOMEN LIMITED, 02/12/2024, 14:42. FINDINGS: Image quality: Diagnostic. Kidneys and Ureters: No hydronephrosis. No solid mass. No complex renal cystic lesion which requires follow up. Prominent bilateral column of Trevor. OTHER: Lower chest: Small hiatal hernia with diffuse lower esophageal wall thickening. Small right Bochdalek hernia containing fat. Liver: No solid mass. Gallbladder: No radiopaque gallstones or wall thickening. Biliary ducts: No biliary dilation. Pancreas: Dilation of the pancreatic duct, measure up to 5 millimeters. Spleen: Size is within normal limits. Adrenal Glands: No adrenal nodules. Stomach and Bowel: Normal colonic caliber, without significant wall thickening. Duodenal diverticulum extending into the pancreatic head measuring 2.3 x 0.8 centimeter (series 3, image 33). Colonic diverticulosis without evidence of diverticulitis. Peritoneum: No abnormal intraperitoneal fluid. No free air. Ventral Wall: No hernia. Abdominal Nodes: No retroperitoneal or mesenteric adenopathy by size criteria. Vessels: Aorta and inferior vena cava are normal in size. Bones: No aggressive osseous abnormality. IMPRESSION: No solid renal mass. Mild dilation of the pancreatic duct, possibly due to a partially obstructing process caused by a small duodenal diverticulum extending to the pancreatic head. Consider GI referral for further workup. Small hiatal hernia with diffuse lower esophageal wall thickening, suggestive of esophagitis. Dictated by: Yovani Ruano M.D. on 04/15/2024 at 16:51 Approved by: Yovani Ruano M.D. on 04/15/2024 at 16:55
== END ==
LOC: CT 08:08
PROVIDERS: PCP Family Medicine; Referring Provider Family Medicine; Visit Provider Family Medicine
DX: N28.89 Other specified disorders of kidney and ureter (principal); K86.89 Other specified diseases of pancreas; K57.10 Diverticulosis of small intestine without perforation or abscess without bleeding; K44.9 Diaphragmatic hernia without obstruction or gangrene; K57.90 Diverticulosis of intestine, part unspecified, without perforation or abscess without bleeding
CPT/HCPCS: 74170; Q9967

== ENCOUNTER → 2024-05-03 12:49 | Outpatient (CLI) | payer OTHER, MEDICAID, SELFPAY ==
[2023-10-30 10:02] VITALS: BMI 22.6
== END ==
PROVIDERS: PCP Family Medicine; Visit Provider Physician Assistant
DX: R30.0 Dysuria (principal)
CPT/HCPCS: 81002; 87077; 87086; 87186

== ENCOUNTER 2024-08-26 12:41 | Emergency (ER) | payer OTHER, SELFPAY ==
[2023-10-30 10:02] VITALS: BMI 22.6
[2024-08-26 13:10] VITALS: BP 152/77; PULSE 100; RESP 14; TEMP 37.1; O2SAT 96; BMI 23.6
--- NOTE | 2024-08-26 13:24 | DI.RAD.S_ITS ---
PROCEDURE: XR CHEST 1V INDICATIONS: chest pain TECHNIQUE: One view of the chest was acquired. COMPARISON: [facility], CR, XR CHEST 1V, 02/04/2024, 17:37. FINDINGS: Surgical changes and devices: None. Lungs and pleura: Lungs are clear. No pleural effusions or pneumothorax. Mediastinum: Mediastinal contours appear normal. Heart size is normal. Bones and chest wall: No suspicious bony lesions. Overlying soft tissues appear unremarkable. Severe left shoulder osteoarthritis. IMPRESSION: No acute cardiopulmonary abnormality is seen. Dictated by: Yovani Ruano M.D. on 08/26/2024 at 13:51 Approved by: Yovani Ruano M.D. on 08/26/2024 at 13:52
--- NOTE | 2024-08-26 13:27 | EKG_ITS ---
[address] [address] Test Date: 2024-08-26 Pat Name: Sabrina Solomon Department: Room: Gender: Female [employer]: RODERICK : 1965 Requested By: Order Number: [id number] Reading MD: Ayden Irving Measurements Intervals [place] Rate: 81 P: 57 CO: 180 QRS: -16 QRSD: 64 T: 48 QT: 384 QTc: 446 Interpretive Statements Normal sinus rhythm Electronically Signed On 08-26-2024 18:00:42 PST by Ayden Irving
--- NOTE | 2024-08-26 14:19 | ED_ITS ---
<Statement entered by Kendall Cooper DO - 09/03/24 06:59> Dr. Cooper: I was immediately available in the department for consultation. I did not actually see the patient. HPI - Skin/Abscess/Foreign Bdy General Chief complaint: Skin/Abscess/Foreign Body Stated complaint: burning rash on face x3 days Time Seen by Provider: 08/26/24 13:37 Source: patient Mode of arrival: Ambulatory Limitations: no limitations History of Present Illness HPI narrative: Ms. Solomon is a pleasant 59-year-old female with a past medical history of bipolar 1 disorder, PTSD, anxiety, GERD, urinary incontinence, type 2 diabetes on metformin who presents to the emergency department for a facial rash x5 days. Patient states she started using a new Lancome facial cream and shortly after she developed a red papular/pustular rash on her face, more prominent on the left side than the right side with some burning pain. She has been using hydrocortisone cream which is improving the rash. Her is currently in the emergency department so she decided to check in to have this rash evaluated. She denies any other symptoms such as fevers, chills, nausea, vomiting, visual disturbance. Of note, patient states she was told in the past that she might have atrial fibrillation so an EKG was obtained in triage revealing normal sinus rhythm. Related Data Home Medications Medication Instructions Recorded Confirmed acetaminophen 325 mg tablet 650 mg PO Q6H PRN 04/02/24 05/03/24 famotidine 20 mg tablet 20 mg PO BID 04/02/24 05/03/24 gabapentin 300 mg capsule 300 mg PO Q8H 04/02/24 05/03/24 Previous Rx's Medication Instructions Recorded blood-glucose meter #1 ea 04/02/24 lancets 30 gauge #100 ea 04/02/24 metformin 500 mg tablet,extended 500 mg PO BID blood sugars #180 04/02/24 release 24hr (osmotic) tabs blood sugar diagnostic (Blood #50 ea 07/26/24 Glucose Test strips) Allergies Allergy/AdvReac Type Severity Reaction Status Date / Time No Known Drug Allergies Allergy Verified 05/03/24 13:36 Review of Systems Review of Systems ROS Unobtainable: All systems reviewed & are unremarkable except as noted in HPI and below Patient History Medical History Elevated LFTs Type 2 diabetes mellitus without complication, with no history of insulin use Acne (~01/02/22) PTSD (post-traumatic stress disorder) (~2009) Anxiety (~2009) Fractures Ankle pain (~1999) History of urinary incontinence (~2019) GERD (gastroesophageal reflux disease) Tobacco dependence Depression with anxiety (~2009) Bipolar 1 disorder Hepatitis C (~1984) Alcohol use disorder Surgical History Anesthesia History of ankle surgery (~1999) History of knee surgery (~2011) History of elbow surgery (~1988) Family History Father Stroke Cancer Mother Diabetes mellitus Social History household members: significant other Smoking Status: Current some day smoker alcohol intake: current Smoking Status: Current some day smoker alcohol intake frequency: 3 or more drinks per day Exam Narrative Exam Narrative: GENERAL: 59 year old patient appears stated age. Well-developed patient, in no acute distress. HEAD: Atraumatic. Normocephalic. ENT: No mucous membrane lesions. Oropharynx is widely patent. NECK: Trachea midline. Cervical ROM intact. CARDIOVASCULAR: Regular rate and rhythm. RESPIRATORY: ?Nonlabored respirations. ?Speaking in clear, full sentences. GASTROINTESTINAL: Abdomen soft, non-tender, nondistended. NEURO: AOx3. ?Clear speech. ?Moves all 4 extremities appropriately. SKIN: On the face the patient has a maculopapular rash with some pustules most prominent on the forehead in the left side of the face however there are a few spots on the right side. No blisters or drainage. No erythema between the papule/pustules. Some small scabs. No swelling of the face. Initial Vital Signs Initial Vital Signs: Vital Signs Temperature 98.7 F 08/26/24 13:10 Pulse Rate 100 H 08/26/24 13:10 Respiratory Rate 14 08/26/24 13:10 Blood Pressure 152/77 H 08/26/24 13:10 Pulse Oximetry 96 08/26/24 13:10 Oxygen Delivery Method Room Air 08/26/24 13:10 Course Orders Ordered: ED Orders 08/26/24 13:24 XR chest 1V Stat EKG-12 Lead Stat Discontinued Medications Aspirin (Aspirin 81 Mg Chew Tab) 324 mg PO NOW ONE Stop: 08/26/24 13:24 Last Admin: 08/26/24 13:40 Dose: Not Given Documented By: MARYAM Vital Signs Vital signs: Vital Signs - 8 hr 08/26/24 13:10 08/26/24 15:05 Temperature 98.7 F 97.6 F Pulse Rate 100 H 98 H Respiratory Rate 14 16 Blood Pressure 152/77 H 150/75 H Pulse Oximetry 96 98 Oxygen Delivery Method Room Air Room Air MDM - Skin/Abscess/Foreign Bdy Medical Records Attestation: I reviewed the patient's medical records. MDM Narrative Medical decision making narrative: 59-year-old female with a past medical history of bipolar 1 disorder, PTSD, anxiety, GERD, urinary incontinence, type 2 diabetes on metformin who presents to the emergency department for a facial rash x5 days. Her is also patient in the ED which prompted her to get evaluated. Of note, patient states she was told in the past that she might have atrial fibrillation so an EKG and chest x-ray were obtained in triage revealing normal sinus rhythm and no acute cardiopulmonary abnormality seen on chest x-ray. Differential diagnosis includes but is not limited to shingles, perioral dermatitis, contact dermatitis, rosacea, etc. On exam the patient is in no acute distress, nontoxic appearing, heart rate is slightly elevated however patient states she is very anxious and wanting to get back to her in the main side of the emergency department. EKG reveals rate of 81 beats per minute, normal rhythm. Patient has a papular rash on her face with some pustules that has been getting better over the last 5 days. Physical exam is concerning for rosacea versus perioral dermatitis vs possible contact dermatitis as patient's symptoms did start after using a new facial cream. No blisters or isolated dermatome consistent with shingles at this time. Patient's symptoms have been improving with hydrocortisone so I recommended that she can apply hydrocortisone b.i.d. x2 weeks however I also recommend she starts using a ketoconazole shampoo as face wash to help with possible fungal acne/rosacea. Patient will benefit following up with PCP and Dermatology for further evaluation. She is very happy with this plan. We did discuss signs and symptoms to return to the ED for. We did also discuss the importance of her following up with her PCP for Holter monitor for remote history of possible paroxysmal AFib. Patient verbalized understanding of all information and is agreeable to the plan. She is stable for discharge home. Discharge Plan Departure Patient Disposition: Home Clinical Impression: Facial rash Instructions: DI for Atopic Dermatitis-Adult Activity Restrictions/Additional Instructions: Thank you for being evaluated at the emergency department. Today you were evaluated for a rash on your face. Because the rash is getting better with hydrocortisone cream, you may continue applying this cream twice a day for the next 2 weeks or until the rash goes away. I would also like you to purchase Nizoral / Ketoconazole Shampoo and use this as a face wash twice daily to help with any fungal type acne. This rash could be from the new face cream you started using so I recommend you only use products for sensitive skin on the face and avoid any fragments on the face. You would benefit from seeing a awning hanger as they can help diagnose other conditions like rosacea. Please follow up with your primary care doctor as soon as possible who can refer you to a awning hanger if needed Return to the ER immediately if you develop swelling of the eyes, increased redness of the face, blisters on the face, fevers, any other concerns. Please follow up with your primary care doctor within the next 2-3 days for ER follow-up. (If you do not have a PCP you can call [phone]. ?to schedule an appointment with an [facility] Primary Care Provider) IF YOU DEVELOP ANY NEW OR WORSENING SYMPTOMS, RETURN TO THE ER! Please read the attached instructions, they highlight more specific treatments and interventions for you at home. Thank you for letting me participate in your care, Felisha Rosario PA-C Prescriptions: No Action (DME) blood-glucose meter Kit See Rx Instructions .Route Qty: 1 0RF Rx Instructions: As directed (DME) lancets 30 gauge misc See Rx Instructions .Route Qty: 100 1RF Rx Instructions: As directed, As directed, to test glucose level once daily (DME) Blood Glucose Test Strip See Rx Instructions .Route Qty: 50 2RF Rx Instructions: As directed, to test glucose level once daily acetaminophen 325 mg tablet 650 mg PO Q6H PRN famotidine 20 mg tablet 20 mg PO BID gabapentin 300 mg capsule 300 mg PO Q8H metformin 500 mg tablet extended release 24 hr 500 mg PO BID Qty: 180 3RF Referrals: Peyman Kerr DO [Primary Care Provider] - Stand Alone Forms: Patient Portal/API/Survey
[2024-08-26 15:05] VITALS: BP 150/75; PULSE 98; RESP 16; TEMP 36.4; O2SAT 98
== END 2024-08-26 15:08 | disposition home or self-care (01) ==
PROVIDERS: Emergency Provider Physician Assistant; PCP Family Medicine
DX: R21 Rash and other nonspecific skin eruption (principal); E11.9 Type 2 diabetes mellitus without complications; F10.90 Alcohol use, unspecified, uncomplicated; R07.9 Chest pain, unspecified
CPT/HCPCS: 71045; 93005; 99281; 99284

== ENCOUNTER 2024-09-07 08:58 | Emergency (ER) | payer OTHER, SELFPAY ==
[2023-10-30 10:02] VITALS: BMI 22.6
[2024-09-07 09:22] VITALS: BP 113/79; PULSE 71; RESP 18; TEMP 36.9; O2SAT 98; BMI 23.7
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
[2024-09-07] MEDS: DOXYCYCLINE HYCLATE 100 MG TABLET PO (09:41)
[2024-09-07] MEDS: AMOXICILLIN/CLAV 875/125 MG 1 TAB PO (09:41)
== END 2024-09-07 09:47 | disposition home or self-care (01) ==
PROVIDERS: Emergency Provider Emergency Medicine; PCP Family Medicine
DX: L03.211 Cellulitis of face (principal)
CPT/HCPCS: 99283

== ENCOUNTER 2024-09-29 18:25 | Emergency (ER) | payer OTHER, SELFPAY ==
[2023-10-30 10:02] VITALS: BMI 22.6
[2024-09-29 18:25] VITALS: BP 124/71; PULSE 101; RESP 18; TEMP 37.1; O2SAT 97; BMI 25.0
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
== END 2024-09-29 19:26 | disposition home or self-care (01) ==
PROVIDERS: Emergency Provider Emergency Medicine; PCP Family Medicine
DX: M62.830 Muscle spasm of back (principal); F10.90 Alcohol use, unspecified, uncomplicated; E11.9 Type 2 diabetes mellitus without complications; V43.52XA Car driver injured in collision with other type car in traffic accident, initial encounter; Z79.4 Long term (current) use of insulin
CPT/HCPCS: 99281

== ENCOUNTER → 2024-12-03 12:16 | Outpatient (CLI) | payer OTHER, SELFPAY ==
[2023-10-30 10:02] VITALS: BMI 22.6
== END ==
LOC: LAB 12:17
PROVIDERS: PCP Family Medicine; Visit Provider Urology
DX: N30.00 Acute cystitis without hematuria (principal)
CPT/HCPCS: 87077; 87086

== ENCOUNTER → 2025-01-14 09:08 | Outpatient (CLI) | payer OTHER, SELFPAY ==
[2023-10-30 10:02] VITALS: BMI 22.6
== END ==
PROVIDERS: PCP Family Medicine; Visit Provider Family Medicine
DX: R30.0 Dysuria (principal); E11.9 Type 2 diabetes mellitus without complications; F31.9 Bipolar disorder, unspecified; R79.89 Other specified abnormal findings of blood chemistry; B19.20 Unspecified viral hepatitis C without hepatic coma
CPT/HCPCS: 87077; 87086; 87186

== ENCOUNTER → 2025-01-14 09:32 | Outpatient (CLI) | payer OTHER, SELFPAY ==
[2023-10-30 10:02] VITALS: BMI 22.6
[2025-01-14 10:26] LABS: Alanine Aminotransferase 25 IU/L (<35); Albumin 4.3 g/dL (3.5-5.0); Alkaline Phosphatase 91 U/L (38-126); Aspartate Aminotransferase 26 IU/L (14-36); BUN Creatinine Ratio 24.5 (6-22); Bilirubin Total 0.9 mg/dL (0.2-1.3); Blood Urea Nitrogen 13 mg/dL (7-17); Calcium 9.4 mg/dL (8.4-10.2); Carbon Dioxide 25 mmol/L (22-32); Chloride 105 mmol/L (98-107); Estimated Glomerular Filt Rate > 60 mL/min (>60); Globulin 4.2 g/dL (1.7-4.1); Glucose 109 mg/dL (70-99); HEMOLYSIS 16 (0-50); Sodium 139 mmol/L (137-145); Total Protein 8.5 g/dL (6.3-8.2)
== END ==
PROVIDERS: PCP Family Medicine; Referring Provider Family Medicine; Visit Provider Family Medicine
DX: R30.0 Dysuria (principal); E11.9 Type 2 diabetes mellitus without complications; F31.9 Bipolar disorder, unspecified; R79.89 Other specified abnormal findings of blood chemistry; B19.20 Unspecified viral hepatitis C without hepatic coma
CPT/HCPCS: 36415; 80053; 83036; 87077; 87086; 87186

== ENCOUNTER → 2025-02-11 14:09 | Outpatient (CLI) | payer OTHER, SELFPAY ==
[2025-01-18 16:14] VITALS: BMI 22.6
== END ==
PROVIDERS: PCP Family Medicine; Visit Provider Urology
DX: N39.41 Urge incontinence (principal)
CPT/HCPCS: 87077; 87086; 87186

== ENCOUNTER 2025-03-02 14:04 | Emergency (ER) | payer OTHER, SELFPAY ==
[2025-01-18 16:14] VITALS: BMI 22.6
[2025-03-02 14:46] VITALS: BP 108/56; PULSE 81; RESP 17; TEMP 36.6; O2SAT 95; BMI 26.4
[2025-03-02 15:41] LABS: Add Manual Diff / Slide Review NO; Hematocrit 37.7 % (36-46); Hemoglobin 13.2 g/dL (12.0-16.0); Lymphocytes Absolute Auto 2100 /uL (1100-4500); Mean Corpuscular HGB Conc 35.1 % (30-36); Mean Corpuscular Hemoglobin 31.4 PG (26-34); Mean Corpuscular Volume 89.5 fL (80-100); Platelet Count 378 X10^3/uL (150-400)
[2025-03-02 16:01] LABS: Alanine Aminotransferase 17 IU/L (<35); Albumin 4.2 g/dL (3.5-5.0); Albumin Globulin Ratio 1.0 (1.0-2.8); Alkaline Phosphatase 108 U/L (38-126); Blood Urea Nitrogen 19 mg/dL (7-17); Calcium 9.5 mg/dL (8.4-10.2); Carbon Dioxide 30 mmol/L (22-32); Chloride 103 mmol/L (98-107); Estimated Glomerular Filt Rate > 60 mL/min (>60); Globulin 4.3 g/dL (1.7-4.1); Glucose 122 mg/dL (70-99); HEMOLYSIS 18 (0-50); Potassium 3.3 mmol/L (3.4-5.1); Sodium 142 mmol/L (137-145); Total Protein 8.5 g/dL (6.3-8.2)
--- NOTE | 2025-03-02 18:06 | ED.EXTPRO ---
HPI - Extremity Problem General Chief complaint: Extremity Problem,Nontraumatic Stated complaint: Diabetic, both feet are swelling Time Seen by Provider: 03/02/25 17:36 History of Present Illness HPI Narrative: This is a 59-year-old female with a history of type 2 diabetes on metformin in the history of treated hepatitis-C complaining of bilateral lower extremity swelling. Concerns her feet mainly. No calf pain no prolonged immobilization no family history of DVT or pulmonary embolism. She is not having fevers shortness of breath or chest pain. Endorses some palpitations recently. Does have a local primary care provider and is not on a diuretic. Related Data Home Medications ?Medication ?Instructions ?Recorded ?Confirmed glecaprevir 100 mg-pibrentasvir 40 3 tab PO QAM 01/14/25 02/16/25 mg tablet (Mavyret) Previous Rx's ?Medication ?Instructions ?Recorded gabapentin 300 mg capsule 300 mg PO Q8H #90 caps 08/31/24 alcohol swabs (Alcohol Wipes) 1 pad topical DAILY PRN to test 10/13/24 blood glucose once daily #100 ea blood sugar diagnostic (Blood #100 ea 10/13/24 Glucose Test strips) blood-glucose meter #1 ea 10/13/24 empty container (Sharps Container) #1 ea 10/13/24 lancets 28 gauge #100 ea 10/13/24 metformin 500 mg tablet,extended 500 mg PO BID #180 tabs 02/01/25 release 24 hr peg 3350-electrolytes 236 240 ml PO Q10M #4,000 mL 02/03/25 gram-22.74 gram-6.74 gram-5.86 gram solution (Golytely) potassium chloride 20 mEq 20 meq PO DAILY #30 tabs 03/02/25 tablet,extended release Allergies Allergy/AdvReac Type Severity Reaction Status Date / Time No Known Drug Allergies Allergy Verified 02/16/25 09:27 Patient History Medical History History of tobacco use Urge incontinence Hx of diabetes mellitus Elevated LFTs Type 2 diabetes mellitus without complication, with no history of insulin use Acne (~01/02/22) PTSD (post-traumatic stress disorder) (~2009) Anxiety (~2009) Fractures Ankle pain (~1999) History of urinary incontinence (~2019) GERD (gastroesophageal reflux disease) Tobacco dependence Depression with anxiety (~2009) Bipolar 1 disorder Hepatitis C (~1984) Alcohol use disorder Surgical History Hx of colectomy Anesthesia History of ankle surgery (~1999) History of knee surgery (~2011) History of elbow surgery (~1988) Family History Father Stroke Cancer Mother Diabetes mellitus Social History marital status: unmarried,single household members: significant other alcohol intake: former caffeine: Yes Type(s) of exercise: none alcohol intake frequency: 3 or more drinks per day Alcohol type: hard liquor Exam Initial Vital Signs Initial Vital Signs: Vital Signs Temperature 98 F 03/02/25 14:46 Pulse Rate 81 03/02/25 14:46 Respiratory Rate 17 03/02/25 14:46 Blood Pressure 108/56 L 03/02/25 14:46 Pulse Oximetry 95 03/02/25 14:46 Oxygen Delivery Method Room Air 03/02/25 14:46 Note that her blood pressure is borderline. Const General: cooperative and No acute distress HENMT Head: normocephalic and atraumatic Face and sinus: face symmetric Mouth: moist mucous membranes Eyes Pupils: PERRL EOM: EOM intact bilaterally Neck Neck: normal visual inspection, supple and No JVD Chest Chest: normal inspection of the chest Resp Effort & Inspection: normal respiratory effort and able to speak in complete sentences Auscultation: clear to auscultation bilaterally Cardio Rate: regular rate Rhythm: regular rhythm Heart Sounds: no murmurs Other: Normal heart rate GI Inspection: normal to inspection Palpation: soft Auscultation: normal bowel sounds Back/Spine/Pelvis Back: normal to inspection Skin General: no rashes or lesions noted and warm Neuro General: patient alert, patient oriented x3 and moves all extremities Speech: speech normal Extrem General: full ROM Other: Trace pedal edema bilaterally. No cords. Feet are well perfused. Psych Appearance: grossly normal Course Orders Ordered: ED Orders 03/02/25 15:18 CBC Auto Diff [Complete Blood Count AUTO DIFF] Stat CMP [Comprehensive Metabolic Panel] Stat Vital Signs Vital signs: Vital Signs - 8 hr 03/02/25 14:46 Temperature 98 F Pulse Rate 81 Respiratory Rate 17 Blood Pressure 108/56 L Pulse Oximetry 95 Oxygen Delivery Method Room Air MDM - Extremity (Nontraumatic) Lab Data 03/02/25 15:18 03/02/25 15:18 Labs: Lab Results 03/02/25 Range/Units 15:18 WBC 7.6 (4.5-11.0) X10^3/uL RBC 4.21 (4.0-5.2) X10^6/uL Hgb 13.2 (12.0-16.0) g/dL Hct 37.7 (36-46) % MCV 89.5 (80-100) fL MCH 31.4 (26-34) PG MCHC 35.1 (30-36) % RDW 12.6 (11.6-14.8) % Plt Count 378 (150-400) X10^3/uL Neut % (Auto) 62.2 (50-75) % Lymph % (Auto) 27.9 (25-40) % Greene % (Auto) 7.0 (3-14) % Eos % (Auto) 2.2 (2-4) % Baso % (Auto) 0.7 (0-2) % Neut # (Auto) 4700 (1569-2923) /uL Lymph # (Auto) 2100 (5964-4124) /uL Greene # (Auto) 500 (0-900) /uL Eos # (Auto) 200 (0-450) /uL Baso # (Auto) 100 (0-100) /uL Sodium 142 (137-145) mmol/L Potassium 3.3 L (3.4-5.1) mmol/L Chloride 103 (98-107) mmol/L Carbon Dioxide 30 (22-32) mmol/L BUN 19 H (7-17) mg/dL Creatinine 0.55 (0.52-1.04) mg/dL Estimated GFR > 60 (>60) mL/min BUN/Creatinine Ratio 34.5 H (6-22) Glucose 122 H (70-99) mg/dL Calcium 9.5 (8.4-10.2) mg/dL Total Bilirubin 0.4 (0.2-1.3) mg/dL AST 26 (14-36) IU/L ALT 17 (<35) IU/L Alkaline Phosphatase 108 (38-126) U/L Total Protein 8.5 H (6.3-8.2) g/dL Albumin 4.2 (3.5-5.0) g/dL Globulin 4.3 H (1.7-4.1) g/dL Albumin/Globulin Ratio 1.0 (1.0-2.8) MDM Narrative Medical decision making narrative: 59-year-old female complaining of bilateral swollen feet. I considered but do not suspect DVT, heart failure, cellulitis. Blood pressures are a little soft probably her baseline, her swelling appears to be quite minimal and on labs she has mild hypokalemia. I counseled her to elevate her feet above the level of the heart when able and follow up with her primary care provider. I wrote a prescription for potassium. Discharge Plan Departure Patient Disposition: Home Clinical Impression: Pedal edema, Hypokalemia Activity Restrictions/Additional Instructions: Emergency department workup today is reassuring. Your potassium is little low, I am not sure that this is causing your feet to swell, but I think supplementing your potassium and having it elevate your feet when able he is a good start. I sent a prescription for a potassium supplement to your pharmacy. I do not suspect that there is any serious condition causing swelling in your feet today. When you elevate your feet, try to get them above the level of the heart and with the knees bent slightly. You should follow up soon with her primary care provider for a recheck. If you develop chest pain shortness of breath fevers or other acute symptoms return to the emergency department. Prescriptions: New potassium chloride 20 mEq tablet extended release 20 meq PO DAILY Qty: 30 0RF No Action gabapentin 300 mg capsule 300 mg PO Q8H Qty: 90 11RF (DME) blood-glucose meter Kit See Rx Instructions .ROUTE .MEDSUPPLY Qty: 1 0RF Rx Instructions: to test blood glucose once daily (DME) Blood Glucose Test Strip See Rx Instructions .ROUTE .MEDSUPPLY Qty: 100 3RF Rx Instructions: to test blood glucose once daily (DME) lancets 28 gauge misc See Rx Instructions .ROUTE .MEDSUPPLY Qty: 100 3RF Rx Instructions: to test blood glucose once daily alcohol swabs [Alcohol Wipes] Pads, Medicated 1 pad topical DAILY PRN (Reason: to test blood glucose once daily) Qty: 100 3RF (DME) Sharps Container Misc See Rx Instructions .ROUTE .MEDSUPPLY Qty: 1 0RF Rx Instructions: As directed to dispose of sharps safely metformin 500 mg tablet extended release 24 hr 500 mg PO BID Qty: 180 3RF peg 3350-electrolytes [Golytely] 236-22.74-6.74 -5.86 gram recon soln 240 ml PO Q10M Qty: 4000 0RF Rx Instructions: Take as directed by Physician Arletteet 100-40 mg tablet 3 tab PO QAM Referrals: Peyman Kerr DO [Primary Care Provider, Family Practice] Stand Alone Forms: Patient Portal/API
[2025-03-02 19:07] VITALS: BP 105/55; PULSE 78; RESP 20; O2SAT 98
== END 2025-03-02 19:07 | disposition home or self-care (01) ==
PROVIDERS: Emergency Medicine; Emergency Provider Emergency Medicine; PCP Family Medicine
DX: R60.0 Localized edema (principal); E87.6 Hypokalemia; E11.9 Type 2 diabetes mellitus without complications
CPT/HCPCS: 36415; 80053; 85025; 99281; 99283

== ENCOUNTER → 2025-03-11 07:23 | Outpatient (CLI) | payer OTHER, SELFPAY ==
[2025-01-18 16:14] VITALS: BMI 22.6
--- NOTE | 2025-03-11 07:24 | DI.US.S_ITS ---
PROCEDURE: US ABDOMEN LIMITED INDICATIONS: EVAL FOR ASCITIES TECHNIQUE: Real-time focused scanning was performed of the abdomen, with image documentation. COMPARISON: None. IMPRESSION: There is no ascites seen in the 4 quadrants. Dictated by: Tadeo Perez M.D. on 03/12/2025 at 17:01 Approved by: Tadeo Perez M.D. on 03/12/2025 at 17:01
== END ==
PROVIDERS: PCP Family Medicine; Referring Provider Family Medicine; Visit Provider Physician Assistant
DX: B19.20 Unspecified viral hepatitis C without hepatic coma (principal)
CPT/HCPCS: 76705

== ENCOUNTER → 2025-04-29 13:10 | Outpatient (CLI) | payer OTHER, SELFPAY ==
[2025-01-18 16:14] VITALS: BMI 22.6
--- NOTE | 2025-04-29 13:12 | DI.US.S_ITS ---
MM diagnostic mammo unilat RT, US breast RT limited: 04/29/2025 BI-RADS: 4 CLINICAL: 60-year old female for right diagnostic mammogram and right diagnostic breast ultrasound that is a recall from screening on 03/25/2025. Tyrer-Cuzick lifetime risk of 8.7%. No personal or first-degree family history of breast cancer. Current reported family history of breast cancer: maternal grandmother. PRIOR EXAMS Mammogram(s): 03/25/2025. MAMMOGRAPHY TECHNIQUE: 2D and 3D (tomosynthesis) digital mammographic views obtained, with additional images as needed for full coverage. Current study was also evaluated with a Computer Aided Detection (CAD) system. ULTRASOUND TECHNIQUE Real-time leonard scale imaging of the area of clinical interest was performed with image documentation. TARGETED Right Breast Ultrasound: Real-time ultrasound exam was performed focused to area of clinical and/or imaging concern. DENSITY Right: B. There are scattered areas of fibroglandular density. MAMMOGRAPHY FINDINGS Right: MLO only, Central, Middle depth, measuring 0.9cm. Previous report: MLO only, Upper: Correlating with findings on screening mammogram, there is an asymmetry seen only on one view. The asymmetry is irregular and high-density. ULTRASOUND FINDINGS Right: Central, Retroareolar. Previous report: MLO only, Upper: There is no sonographic abnormality to account for imaging concern on mammography. Right: Inner at 3:00, 5 cm from nipple: There is no sonographic abnormality to account for imaging concern on mammography. Right: Outer at 9:00, 5 cm from nipple: There is no sonographic abnormality to account for imaging concern on mammography. IMPRESSION: Right (Asymmetry): MLO only, Central, Middle depth, measuring 0.9cm. Previous report: MLO only, Upper * Suspicious findings with likelihood of malignancy. RECOMMENDATIONS Right: MLO only, Central, Middle depth * Stereotactic-guided biopsy for further evaluation. COMMENTS: Findings and recommendations were conveyed to the patient during today's evaluation by Dr. Odom. OVERALL ASSESSMENT CATEGORY BI-RADS-4: Suspicious. ELECTRONICALLY SIGNED: Minerva Horn M.D. on 04/29/2025 at 02:52:51 PM PT Interpreting Station ID: [id number]
== END ==
LOC: MAMMO 13:11
PROVIDERS: PCP Family Medicine; Referring Provider Family Medicine; Visit Provider Family Medicine
DX: R92.8 Other abnormal and inconclusive findings on diagnostic imaging of breast (principal); N63.10 Unspecified lump in the right breast, unspecified quadrant; N64.89 Other specified disorders of breast; R92.321 Mammographic fibroglandular density, right breast; Z80.3 Family history of malignant neoplasm of breast
CPT/HCPCS: 76642; 77065; G0279

== ENCOUNTER 2025-05-17 20:02 | Emergency (ER) | payer OTHER, SELFPAY ==
[2025-01-18 16:14] VITALS: BMI 22.6
[2025-05-17 20:08] VITALS: BP 178/80; PULSE 100; RESP 16; TEMP 36.8; O2SAT 97; BMI 25.8
[2025-05-17] MEDS: IBUPROFEN 400 MG TABLET 800 MG PO (20:17)
--- NOTE | 2025-05-17 21:49 | DI.CT.S_ITS ---
PROCEDURE: CT LUMBAR SPINE WO CON INDICATIONS: back pain fall TECHNIQUE: Noncontrast 3 mm thick sections acquired from the T12 level to the sacrum. Sagittal and coronal reformats were constructed. For radiation dose reduction, the following was used: automated exposure control. COMPARISON: [facility], CT, CT ABDOMEN RENAL PROTOCOL, 04/14/2024, 8:18. FINDINGS: Image quality: Excellent. Bones: There is normal bony alignment. Decreased osseous mineralization. Mild superior endplate compression deformity of T12 with an acute appearance. Stable mild superior endplate height loss of L1. Degenerative changes of the spine, most pronounced with facet arthropathy of the lower lumbar spine. No suspicious lytic or blastic bony lesions. No pars defects. Soft tissues: No retroperitoneal masses or hematomas. Visualized aorta is normal in caliber. Atherosclerotic calcifications. Small hiatal hernia. Punctate bilateral nonobstructing renal calcifications. IMPRESSION: Acute appearing mild superior endplate compression deformity of T12. No significant retropulsion. Dictated by: Imtiaz Corral M.D. on 05/17/2025 at 22:56 Approved by: Imtiaz Corral M.D. on 05/17/2025 at 22:59
--- NOTE | 2025-05-18 01:43 | ED.BACK ---
HPI - Back Pain/Injury General Chief Complaint: Back Pain/Injury Stated Complaint: Fell on friday/hurt back Time Seen by Provider: 05/17/25 21:49 Source: patient Limitations: no limitations History of Present Illness HPI Narrative: 60-year-old female history of diabetes, hepatitis-C, prior C2 cervical fracture, bipolar disorder who presents with complaint of fall backwards onto her buttocks. Patient states she has been using a walker has been trying to use it less and fell backwards while moving groceries onto her buttocks. She states this occurred on Friday. She has since then had back pain in the lower thoracic upper lumbar region that radiates to both sides. She states no radiation down her legs. She denies any new weakness or numbness of her extremities. She states she has chronic urinary incontinence at baseline. She denies any new fecal incontinence. Denies fevers or chills. States she did not hit her head. Denies any loss of consciousness. Denies any cervical neck pain. No chest pain or shortness of breath. No nausea or vomiting. No abdominal pain. Patient states she has been taking Tylenol without much improvement of her symptoms. Came today as she was trying to get into her daughter's trunk and it was too uncomfortable for her to do this. She has been able to get to the bathroom. She states home medications are gabapentin, metformin States she follows with Dr. Kerr. Related Data Home Medications ?Medication ?Instructions ?Recorded ?Confirmed glecaprevir 100 mg-pibrentasvir 40 3 tab PO QAM 01/14/25 02/16/25 mg tablet (Mavyret) Previous Rx's ?Medication ?Instructions ?Recorded gabapentin 300 mg capsule 300 mg PO Q8H #90 caps 08/31/24 alcohol swabs (Alcohol Wipes) 1 pad topical DAILY PRN to test 10/13/24 blood glucose once daily #100 ea blood sugar diagnostic (Blood #100 ea 10/13/24 Glucose Test strips) blood-glucose meter #1 ea 10/13/24 empty container (Sharps Container) #1 ea 10/13/24 lancets 28 gauge #100 ea 10/13/24 metformin 500 mg tablet,extended 500 mg PO BID #180 tabs 02/01/25 release 24 hr peg 3350-electrolytes 236 240 ml PO Q10M #4,000 mL 02/03/25 gram-22.74 gram-6.74 gram-5.86 gram solution (Golytely) potassium chloride 20 mEq 20 meq PO DAILY #30 tabs 03/02/25 tablet,extended release oxycodone 5 mg tablet 5 mg PO TID PRN pain #10 tabs 05/18/25 Allergies Allergy/AdvReac Type Severity Reaction Status Date / Time No Known Drug Allergies Allergy Verified 02/16/25 09:27 Review of Systems Review of Systems ROS Unobtainable: All systems reviewed & are unremarkable except as noted in HPI and below Patient History Medical History History of tobacco use Urge incontinence Hx of diabetes mellitus Elevated LFTs Type 2 diabetes mellitus without complication, with no history of insulin use Acne (~01/02/22) PTSD (post-traumatic stress disorder) (~2009) Anxiety (~2009) Fractures Ankle pain (~1999) History of urinary incontinence (~2019) GERD (gastroesophageal reflux disease) Tobacco dependence Depression with anxiety (~2009) Bipolar 1 disorder Hepatitis C (~1984) Alcohol use disorder Surgical History Hx of colectomy Anesthesia History of ankle surgery (~1999) History of knee surgery (~2011) History of elbow surgery (~1988) Family History Father Stroke Cancer Mother Diabetes mellitus Social History marital status: unmarried,single household members: significant other alcohol intake: former caffeine: Yes Type(s) of exercise: none Smoking Status: Never smoker alcohol intake frequency: 3 or more drinks per day Alcohol type: hard liquor Exam Narrative Exam Narrative: GENERAL: Alert and oriented x three, female in mild distress HEENT: Head normocephalic, atraumatic, EOMI, pupils reactive, face symmetric, moist mucous membranes NECK: Supple, full range of motion CARDIOVASCULAR: Regular rate and rhythm without murmurs, rubs or gallops. RESPIRATORY: Breath sounds equal bilaterally, no wheezes rales or rhonchi. ABDOMEN: Soft, nontender. Normoactive bowel sounds all 4 quadrants. No guarding or rebound, rigidity, no mass : No CVA tenderness BACK: No cervical, vertebral point tenderness. Patient has mild tenderness at the T12-L1 region. Patient has mildly decreased range of motion. Patient's gait is normal, does use a walker. at baseline. Rectal exam is deferred. Muscle strength is 5/5 in lower extremities, DTRs are 2/4 and lower extremities. Dorsalis pedis and tibialis pulses are 2+ and lower extremities. Sensation is intact in the lower extremities. Patient has full range of motion of her lower extremities. No increased pain with straight leg raise bilaterally. EXTREMITIES: Normal range of motion, no clubbing or edema. Neurovascularly intact NEUROLOGICAL: Cranial nerves II through XII grossly intact. Moving all extremities SKIN: Warm, dry, no petechiae, no rashes or lesions. Initial Vital Signs Initial Vital Signs: Vital Signs Temperature 98.3 F 05/17/25 20:08 Pulse Rate 100 H 05/17/25 20:08 Respiratory Rate 16 05/17/25 20:08 Blood Pressure 178/80 H 05/17/25 20:08 Pulse Oximetry 97 05/17/25 20:08 Oxygen Delivery Method Room Air 05/17/25 20:08 Course Orders Ordered: ED Orders 05/17/25 21:49 CT lumbar spine wo con Stat Discontinued Medications Ibuprofen (Ibuprofen 400 Mg Tablet) 800 mg PO NOW ONE Stop: 05/17/25 20:15 Last Admin: 05/17/25 20:17 Dose: 800 mg Documented By: MORE Vital Signs Vital signs: Vital Signs - 8 hr 05/17/25 20:08 Temperature 98.3 F Pulse Rate 100 H Respiratory Rate 16 Blood Pressure 178/80 H Pulse Oximetry 97 Oxygen Delivery Method Room Air MDM - Back Pain/Injury MDM Narrative Medical decision making narrative: Lumbar spine CT acute appearing mild superior endplate compression deformity of T12. No significant retropulsion. Patient had ibuprofen here in the department Patient does not have any acute neurologic changes. We will give a short course of oral narcotic pain medication however follow up with primary care. Discharge Plan Departure Patient Disposition: Home Clinical Impression: Compression fracture of T12 vertebra Instructions: DI for Vertebral Fracture Activity Restrictions/Additional Instructions: Follow up with your physician for recheck. You have a mild superior endplate compression deformity of T12. You have a stable (old) prior endplate height loss of L1. Take ibuprofen up to 600 mg every 6 hours as needed for pain. Can take pain medication as prescribed. This medication can make you sleepy do not drive, perform hazardous activities or make any major decisions while taking it. This medication will make you constipated please take a stool softener once to twice daily until stools are soft and regular. Prescription sent to [email or web address] in [place]. Please return if you develop fevers, rapidly worsening pain, new loss of bowel control, new weakness, numbness or difficulty moving your extremities or feeling them or other new or concerning changes. Prescriptions: New oxycodone 5 mg tablet 5 mg PO TID PRN (Reason: pain) Qty: 10 0RF No Action gabapentin 300 mg capsule 300 mg PO Q8H Qty: 90 11RF (DME) blood-glucose meter Kit See Rx Instructions .ROUTE .MEDSUPPLY Qty: 1 0RF Rx Instructions: to test blood glucose once daily (DME) Blood Glucose Test Strip See Rx Instructions .ROUTE .MEDSUPPLY Qty: 100 3RF Rx Instructions: to test blood glucose once daily (DME) lancets 28 gauge misc See Rx Instructions .ROUTE .MEDSUPPLY Qty: 100 3RF Rx Instructions: to test blood glucose once daily alcohol swabs [Alcohol Wipes] Pads, Medicated 1 pad topical DAILY PRN (Reason: to test blood glucose once daily) Qty: 100 3RF (DME) Sharps Container Misc See Rx Instructions .ROUTE .MEDSUPPLY Qty: 1 0RF Rx Instructions: As directed to dispose of sharps safely metformin 500 mg tablet extended release 24 hr 500 mg PO BID Qty: 180 3RF peg 3350-electrolytes [Golytely] 236-22.74-6.74 -5.86 gram recon soln 240 ml PO Q10M Qty: 4000 0RF Rx Instructions: Take as directed by Physician Mavyret 100-40 mg tablet 3 tab PO QAM potassium chloride 20 mEq tablet extended release 20 meq PO DAILY Qty: 30 0RF Referrals: Peyman Kerr DO [Primary Care Provider, Family Practice] Stand Alone Forms: Patient Portal/API
[2025-05-18 02:16] VITALS: BP 160/78; PULSE 69; RESP 20; O2SAT 96
== END 2025-05-18 02:20 | disposition home or self-care (01) ==
PROVIDERS: Emergency Provider Emergency Medicine; PCP Family Medicine
DX: S22.089A Unspecified fracture of T11-T12 vertebra, initial encounter for closed fracture (principal); W18.30XA Fall on same level, unspecified, initial encounter
CPT/HCPCS: 72131; 99283; 99284

== ENCOUNTER → 2025-06-03 08:11 | Outpatient (CLI) | payer OTHER, SELFPAY ==
[2025-01-18 16:14] VITALS: BMI 22.6
[2025-06-03 08:44] LABS: Hemoglobin A1C% w Est Avg Glu 6.5 % (4.0-6.0)
[2025-06-03 08:53] LABS: Blood Urea Nitrogen 14 mg/dL (7-17); Calcium 9.3 mg/dL (8.4-10.2); Carbon Dioxide 24 mmol/L (22-32); Chloride 106 mmol/L (98-107); Cholesterol 208 mg/dL (140-199); Estimated Glomerular Filt Rate > 60 mL/min (>60); Glucose 205 mg/dL (70-99); HDL Cholesterol 49 mg/dL (40-60); HEMOLYSIS 18 (0-50); Potassium 4.1 mmol/L (3.4-5.1); Sodium 140 mmol/L (137-145); Triglycerides 359 mg/dL (35-150)
[2025-06-03 11:00] LABS: Hep C Virus Ab w/Reflex Quant REACTIVE s/c (NEGATIVE)
== END ==
PROVIDERS: PCP Family Medicine; Referring Provider Family Medicine; Visit Provider Family Medicine
DX: B18.2 Chronic viral hepatitis C (principal); E11.9 Type 2 diabetes mellitus without complications; F10.20 Alcohol dependence, uncomplicated
CPT/HCPCS: 36415; 80048; 80061; 83036; 86803; 87522

== ENCOUNTER → 2025-06-23 14:33 | Outpatient (CLI) | payer OTHER, SELFPAY ==
[2025-01-18 16:14] VITALS: BMI 22.6
== END ==
LOC: CAR 14:34
PROVIDERS: Family Provider Family Medicine; PCP Family Medicine; Referring Provider Family Medicine; Visit Provider Family Medicine
DX: I48.91 Unspecified atrial fibrillation (principal); I48.92 Unspecified atrial flutter; B18.2 Chronic viral hepatitis C; E11.9 Type 2 diabetes mellitus without complications; F10.20 Alcohol dependence, uncomplicated
CPT/HCPCS: 93246